=== PATIENT | female | born 1940 | race Two or more races ===

== ENCOUNTER 2018-10-08 17:43 | Observation (INO) | payer MEDICARE, MEDICAID ==
[2018-10-08 18:51] LABS: ALT 15 U/L (7-52); Albumin 4.1 g/dL (3.2-5.2); Albumin/Globulin Ratio 1.2 (1-3); Alkaline Phosphatase 73 U/L (34-104); BUN/Creatinine Ratio 21.9 (8-20); Blood Urea Nitrogen 30 mg/dL (6-24); CO2 Carbon Dioxide 28 mmol/L (22-32); Calcium 10.2 mg/dL (8.6-10.3); Chloride 105 mmol/L (101-111); EGFR Non-African American 37.1 (>60); Globulin 3.4 g/dL (2-4); Glucose 97 mg/dL (70-100); Magnesium 2.1 mg/dL (1.9-2.7); Sodium 139 mmol/L (135-145); Total Protein 7.5 g/dL (6.4-8.9)
--- NOTE | 2018-10-08 19:06 | ED ---
Dizziness - HPI Summary HPI Summary: An 78 y/o female presents to [facility] with a chief complaint of dizziness since the night of 10/07/18. Per son, she had trouble standing up. She feels cold even though room is warm. She c/o N/V. Her son gave the patient pepto bismol but she could not eat much. She vomited after eating half a banana. She was given chicken soup and pepto bismol again but she vomited again. She characterizes her dizziness as room-spinning. She denies ear ringing, headaches and chest pain. Her son thinks she has a flu since she did not get her flu shot. Hx of HTN, cardiac disease, kidney issues, HLD. 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 Hx of CVA once. She denies smoking. She rates her pain as a 0/10. Laying down alleviates her pain, sitting up and movement aggravates her pain. - History Of Current Complaint Chief Complaint: EDDizziness Stated Complaint: WEAKNESS, FALL Time Seen by Provider: 10/08/18 18:51 Hx Obtained From: Patient, Family/Director [employer] Onset/Duration: Suddenly Timing: Hours Severity Initially: Mild Severity Currently: Mild Character: Room Spinning Aggravating Factor(s): Other - Sitting up, movement Alleviating Factor(s): Lying Down Associated Signs And Symptoms: Positive: Nausea, Vomiting, Chills. Negative: Chest Pain, Fever - Allergies/Home Medications Allergies/Adverse Reactions: Allergies Allergy/AdvReac Type Severity Reaction Status Date / Time No Known Allergies Allergy Verified 10/08/18 17:52 Home Medications: Home Medications Albuterol Sulfate [Ventolin Hfa] 1 puff PO BID PRN 10/08/18 [History Confirmed 10/08/18] Bisoprolol Fumarate 1 tab PO DAILY 10/08/18 [History Confirmed 10/08/18] Clopidogrel TAB* [Plavix TAB*] 75 mg PO DAILY 10/08/18 [History Confirmed ] Fluticasone/Vilanterol MDI(NF) [Breo Ellipta MDI 200/25(NF)] 1 puff PO DAILY [History Confirmed 10/08/18] Torsemide 10 mg PO DAILY 10/08/18 [History Confirmed 10/08/18] amLODIPine TAB* [Norvasc 5 mg TAB*] 5 mg PO DAILY 10/08/18 [History Confirmed ] PMH/Surg Hx/FS Hx/Imm Hx Cardiovascular History: Reports: Hx Hypercholesterolemia, Hx Hypertension Respiratory History: Reports: Hx Asthma Musculoskeletal History: Denies: Hx Rheumatoid Arthritis, Hx Osteoporosis Infectious Disease History: No Infectious Disease History: Denies: Traveled Outside the [place] in Last 30 Days - Family History Known Family History: Positive: Cardiac Disease - father and mother Negative: Diabetes - Social History Alcohol Use: None Substance Use Type: Reports: None Smoking Status (MU): Never Smoked Tobacco Review of Systems Negative: Fever Negative: Ear Ache Negative: Chest Pain Positive: Vomiting, Nausea Neurological: Other - positive: dizziness-room spinning Negative: Headache All Other Systems Reviewed And Are Negative: Yes Physical Exam - Summary Physical Exam Summary: GENERAL: Patient is a well-developed and nourished F who is lying comfortable in the stretcher. Patient is not in any acute respiratory distress. HEAD AND FACE: Normocephalic EYES: PERRLA, EOMI x 2. EARS: Hearing grossly intact. MOUTH: Oropharynx within normal limits. NECK: Supple, trachea is midline, no adenopathy, no JVD, no carotid bruit. CHEST: Symmetric, no tenderness at palpation LUNGS: Clear to auscultation bilaterally. No wheezing or crackles. CVS: Regular rate and rhythm, S1 and S2 present, no murmurs or gallops appreciated. ABDOMEN: Soft, non-tender. Bowel sounds are normal. No abdominal abnormal pulsations. EXTREMITIES: Full ROM in all major joints, no edema, no cyanosis or clubbing. NEURO: Alert and oriented x 3. No acute neurological deficits. Speech is normal and follows commands. SKIN: Dry and warm Neuro exam extended: Cranial nerves II-XII grossly intact, no dysmetria finger to nose, nml heel to rajan GCS: 15 Triage Information Reviewed: Yes Vital Signs On Initial Exam: Initial Vitals Temp Pulse Resp BP Pulse Ox 98.8 F 78 20 148/66 98 10/08/18 17:47 10/08/18 17:47 10/08/18 17:47 10/08/18 17:47 10/08/18 17:47 Vital Signs Reviewed: Yes Diagnostics - Vital Signs Vital Signs Temp Pulse Resp BP Pulse Ox 10/08/18 17:47 98.8 F 78 20 148/66 98 - Laboratory Lab Results: Lab Results 10/08/18 10/08/18 Range/Units 18:22 18:24 Sodium 139 (135-145) mmol/L Potassium Pending Chloride 105 (101-111) mmol/L Carbon Dioxide 28 (22-32) mmol/L Anion Gap Pending BUN 30 H (6-24) mg/dL Creatinine 1.37 H (0.51-0.95) mg/dL Est GFR ( Amer) 44.9 (>60) Est GFR (Non-Af Amer) 37.1 (>60) BUN/Creatinine Ratio 21.9 H (8-20) Glucose 97 (70-100) mg/dL Lactic Acid 0.8 (0.5-2.0) mmol/L Calcium 10.2 (8.6-10.3) mg/dL Magnesium 2.1 (1.9-2.7) mg/dL Total Bilirubin 0.40 (0.2-1.0) mg/dL AST Pending ALT 15 (7-52) U/L Alkaline Phosphatase 73 (34-104) U/L Troponin I 0.02 (<0.04) ng/mL Total Protein 7.5 (6.4-8.9) g/dL Albumin 4.1 (3.2-5.2) g/dL Globulin 3.4 (2-4) g/dL Albumin/Globulin Ratio 1.2 (1-3) TSH Pending Result Diagrams: 10/08/18 19:19 10/08/18 18:22 Lab Statement: Any lab studies that have been ordered have been reviewed, and results considered in the medical decision making process. - Radiology CXR Radiology Interpretation Completed By: ED Physician Summary of Radiographic Findings: No evidence for PNA. Pending official radiology report. - CT Brain CT Interpretation Completed By: Radiologist Summary of CT Findings: 1. Left frontal white matter focal acute hemorrhage versus calcification. Correlation with prior imaging or followup brain MRI recommended. 2. Mild chronic small vessel ischemic disease and small chronic left inferior. cerebellar lobe infarct. ED provider has reviewed this imaging report. - EKG 18:16 Cardiac Rate: NL - 80 bpm EKG Rhythm: Sinus Rhythm Summary of EKG Findings: NSR at 80 bpm with LBBB and ST elevation and depression which does not meet Sgarbossa's criteria. Re-Evaluation - Re-Evaluation First Eval Re-Evaluation Time: 20:20 Change: Improved Comment: Patient reports that dizziness is resolved. Second Eval Re-Evaluation Time: 21:00 Change: Worse Comment: Patient reports dizziness and was leaning to the right when walking to the bathroom. Patient agrees to admission. Dizzy Course/Dx - Course Course Of Treatment: An 78 y/o female presents to [facility] with a chief complaint of dizziness since the night of 10/07/18. Per son, she had trouble standing up. She feels cold even though room is warm. She c/o N/V. Workup is remarkable. BUN/ Creatinine ratio high at 21.9. Troponin 0.02. Influenza A and Influenza B negative. Urinalysis WNL. EKG revealed NSR at 80 bpm with LBBB and ST elevation and depression which does not meet Sgarbossa's criteria. CXR showed no evidence for PNA. Brain CT impression: 1. Left frontal white matter focal acute hemorrhage versus calcification. Correlation with prior imaging or followup brain MRI recommended. 2. Mild chronic small vessel ischemic disease and small chronic left inferior. cerebellar lobe infarct. Dr. Lopez viewed the brain CT and stated that it looks like calcification. Dx: dizziness. Upon re-eval the patient reprorts no more dizziness. Upon a later re-eval, the patient reports dizziness and is off-balance leaning to the right when walking to the bathroom. She would not be a safe discharge. The patient will be admitted. Case discussed with hospitalist. I discussed results with patient. The patient agrees with this plan. - Diagnoses Provider Diagnoses: Dizziness - Provider Notifications Discussed Care Of Patient With: Riley Lopez Time Discussed With Above Provider: 20:15 Instructed by Provider To: Other - Looked at Brain CT and it looks like calcification to him Discharge - Sign-Out/Discharge Documenting (check all that apply): Patient Departure - admit - Discharge Plan Condition: Stable Disposition: ADMITTED TO [facility] Referrals: Joy Grewal MD [Primary Care Provider] - () - Billing Disposition and Condition Condition: STABLE Disposition: Admitted to [facility] - Attestation Statements Document Initiated by Scribe: Yes Documenting Scribe: Joe Borjas Provider For Whom Scribe is Documenting (Include Credential): Terence Mackenzie MD Scribe Attestation: I, Joe Borjas, scribed for Terence Mackenzie MD on 10/08/18 at 2129. Scribe Documentation Reviewed: Yes Provider Attestation: The documentation as recorded by the scribe, Joe Borjas accurately reflects the service I personally performed and the decisions made by me, Jeremiah Mackenzie MD Status of Scribe Document: Viewed Consult Consult: At 21:15 Dr Gross, Hospitalist, accepted the patient for admission.
[2018-10-08] MEDS ORDERED: Ondansetron INJ* 2 MG/ML VIAL IV ONE (19:10)
[2018-10-08] MEDS ORDERED: NS 0.9% 500 ML* 500 ML IV ONE (19:10)
[2018-10-08 19:29] LABS: ABS Basophils 0.1 10^3/ul (0-0.2); ABS Eosinophils 0.1 10^3/ul (0-0.6); ABS Monocytes 0.5 10^3/ul (0-0.8); ABS Neutrophils 6.2 10^3/ul (1.5-7.7); ABS Nucleated RBC 0 10^3/ul; Eosinophil % 1.6 %; Hematocrit 35 % (35-47); Hemoglobin 11.6 g/dl (12.0-16.0); Lymphocyte % 22.6 %; Mean Corpuscular HGB Conc 34 g/dl (31-36); Mean Corpuscular Hemoglobin 29 pg (27-31); Mean Corpuscular Volume 87 fL (80-97); Mean Platelet Volume 8.5 fL (7.4-10.4); Nucleated Red Blood Cells % 0; Platelet Count 319 10^3/ul (150-450); Red Blood Count 3.96 10^6/ul (4.00-5.40); Red Cell Distribution Width 14 % (10.5-15)
[2018-10-08 19:48] LABS: Anion Gap 6 mmol/L (2-11)
[2018-10-08 21:19] LABS: Urine Appearance Clear; Urine Bacteria Absent (Absent); Urine Bilirubin Negative (Negative); Urine Blood 1+ (Negative); Urine Color Yellow; Urine Glucose Negative (Negative); Urine Ketones Negative (Negative); Urine Nitrite Negative (Negative); Urine Protein Negative (Negative); Urine Red Blood Cell Trace(0-2/hpf) (Absent); Urine Specific Gravity 1.012 (1.010-1.030); Urine Urobilinogen Negative (Negative); Urine White Blood Cell Trace(0-5/hpf) (Absent)
[2018-10-08] MEDS ORDERED: Acetaminophen TAB* 325 MG PO PRN (22:16)
[2018-10-08] MEDS ORDERED: Aspirin TAB* 325 MG PO ONE (23:04)
--- NOTE | 2018-10-09 01:24 | HP ---
CC: Dr. Grewal* [facility] MEDICINE HISTORY AND PHYSICAL: DATE OF ADMISSION: 10/08/18 PRIMARY CARE PHYSICIAN: Dr. Grewal. ATTENDING PHYSICIAN: Dr. Nasrin Gross* (dictation provided by Belinda Myles NP) . CHIEF COMPLAINT: Lightheadedness, dizziness, gait instability. HISTORY OF PRESENT ILLNESS: Ms. Boone is an 78-year-old female with past medical history of hypertension, congestive heart failure with lower extremity edema, COPD, questionable history of coronary artery disease, and possible stroke, who presents today to the hospital with concern for what is described variably as lightheadedness, dizziness, and gait instability. Attempts were made to use the iuss acoustic analyst phone with Ms. Boone but we were unable to obtain an Urdu spanish interpreter. Therefore, a translation was obtained from her son who was at the bedside. The patient states that she does not feel that the room is spinning but that she feels unsteady on her feet and that her legs would not do what she wants them to do. For this reason, she came to the emergency room for evaluation. She stated these symptoms started yesterday and lasted through the morning. She thought initially that she was feeling better and was thinking of leaving today from the ED but then when she got up to go to the bathroom, she again felt quite unsteady. I walked with her again today and she is feeling better and only describes feeling "tiny bit of lightheadedness" when she gets back to sit on the bed. She denies any other complaint. She denies any chest pain, shortness of breath, nausea, vomiting, diarrhea, abdominal pain. She has not been noted to have any new focal neurological deficits. Ms. Boone's son is not incredibly familiar with her past medical history. Per his report, he thought that she had had a stroke in the past although the description as told to him per his mother, seems to perhaps describe more of a heart attack. Regardless, the patient does have a history of COPD. He describes a history of CHF with an ejection fraction of 30%. She does have lower extremity edema for which she takes a diuretic. In the emergency room, Ms. Boone had a CT scan of the brain which showed left frontal white matter focal acute hemorrhage versus calcification and mild chronic small vessel ischemic disease. Because of this question of hemorrhage, the scan was reviewed by Neurosurgery and it was indicated to the ED physician that there was no hemorrhage and that this was in fact calcification. The remainder of her labs are unremarkable. PAST MEDICAL HISTORY: 1. Hypertension. 2. Lower extremity edema. 3. Reported congestive heart failure with ejection fraction 30%. 4. COPD. 5. Coronary artery disease. 6. Hyperlipidemia. MEDICATIONS: 1. Torsemide 10 mg p.o. daily. 2. Bisoprolol 1 tab p.o. daily. 3. Amlodipine 5 mg p.o. daily. 4. Fluticasone/vilanterol 200/25 one puff p.o. daily. 5. Clopidogrel 75 mg p.o. daily. 6. Albuterol sulfate one puff p.o. b.i.d. p.r.n. RADIOLOGICAL STUDIES AND LABORATORY DATA: CT brain as described per above. Chest x-ray shows no acute intrathoracic process. No evidence of infiltrate or apparent edema. Official read is pending. ASSESSMENT AND PLAN: Ms. Boone is an 78-year-old female with a past medical history of hypertension, likely CHF, COPD, coronary artery disease and possible stroke/MO, who presents to the hospital today with concern for instability on her feet. Our plans are for observation in the hospital for the followin. Gait instability: The patient seems to have had as best I can determine, the patient denies dizziness, but she does report some sensation of lightheadedness, but primarily reports that she felt that her legs were unstable and she felt very unsteady on her feet. This came on suddenly yesterday and now seems to be improving. My worry is that perhaps she has had a TIA affecting her posterior lobe. Plan for MRI of brain tomorrow and she will have telemonitoring until then. She had a recent fasting lipid profile in December and I do not think one would be reasonable to repeat now. She will be given aspirin tonight. If the MRI is positive, we would continue workup with a transthoracic echocardiogram. 2. Hypertension. Plan to continue amlodipine and bisoprolol. 3. History of CHF. I do not have a prior echocardiogram available here for comparison but the patient's son believes she had an ejection fraction of 30%. Plan to continue home torsemide. No evidence of acute exacerbation. 4. History of coronary artery disease and possible stroke. Continue Plavix. 5. Code status is full code. 6. Disposition to telemetry floor. TIME SPENT: Approximately 60 minutes were spent on the admission of this patient, more than half the time spent with the patient at the bedside reviewing the events leading up to this hospitalization, performing the physical examination, and reviewing my plan of care. BELINDA MYLES NP [id number]/CPS #: [id number] JAYESH
[2018-10-09] MEDS ORDERED: Clopidogrel TAB* 75 MG PO SCH (09:00)
[2018-10-09] MEDS ORDERED: Torsemide TAB* 20 MG PO SCH (09:00)
[2018-10-09] MEDS ORDERED: amLODIPine TAB* 5 MG PO SCH (09:00)
[2018-10-09] MEDS ORDERED: Bisoprolol TAB* 5 MG PO SCH (09:00)
[2018-10-09 15:35] VITALS: BP 111/52
--- NOTE | 2018-10-10 15:13 | DS ---
CC: Dr. Grewal * DISCHARGE SUMMARY: DATE OF ADMISSION: 10/08/18 DATE OF DISCHARGE: 10/09/18 PRIMARY CARE PROVIDER: Dr. Grewal. PRIMARY DIAGNOSES: 1. Vertigo. 2. Identification of old stroke on MRI. SECONDARY DIAGNOSES: Include: 1. Hypertension. 2. Lower extremity edema. 3. Self-reported history of coronary artery disease with an ejection fraction of 30%. 4. Chronic obstructive pulmonary disease. 5. Hyperlipidemia. MEDICATIONS AT DISCHARGE: Unchanged from admission. 1. Torsemide 10 mg daily. 2. Bisoprolol 5 mg daily. 3. Amlodipine 5 mg daily. 4. Breo Ellipta. 5. Clopidogrel 75 mg daily. 6. Albuterol 2 puffs as needed. PERTINENT IMAGING PERFORMED DURING HOSPITAL STAY: MRI of the brain, old infarct in the left cerebellum with chronic ischemic white matter changes. No acute changes are noted. No evidence of hemorrhage. HISTORY OF PRESENT ILLNESS AND HOSPITAL COURSE: This is an 78-year-old female with past medical history as outlined in the history of present illness on the day of admission, who presented to the hospital with some lightheadedness, dizziness as well as gait instability that resolved overnight. She was monitored on telemetry without any arrhythmias identified. MRI identified an old stroke in cerebellar area as indicated above. Discussed results with this patient, indicated that she should stay on Plavix as well as continue adequate blood pressure control, which was excellent during the course of the hospital stay. Her presentation blood sugar was 97; therefore, her blood sugar is under control. Of note, lipids were not checked prior to discharge; however, she indicates that she was prescribed medicines for cholesterol, which she did not want to take because she was taking too many medications. An extensive conversation was held with the family and patient as well as used conversation through medical office technician. The patient would like to consider this medication further. In discussion with Dr. Grewal, at this point does not want to start an oral medication for suspected hyperlipidemia. On the day of discharge, the patient was completely resolved, had no symptoms, benign neuro exam. At followup, please; 1. Consider oral medication for hyperlipidemia if patient is not resistant. 2. Continue to manage blood pressure as I am sure you are. 3. No other specific labs or vitals that need followup. Reasons to return to the hospital including, but not limited to recurrent or worsening symptoms including light-headedness, chest pain, shortness of breath, nausea, vomiting, loss of consciousness or near loss of consciousness, unilateral paresthesias or weakness, facial drooping, slurred speech, confusion discussed with the patient and family at length. Encouraged them to present to the hospital expeditiously as treatment is given in less than 3 hours. They acknowledged understanding. TIME SPENT: Greater than 45 minutes was spent on the discharge of this patient , greater than half was spent [id number] with the patient and her family. [id number]/[facility] #: [id number] MTDD
== END 2018-10-09 20:07 | disposition home or self-care (01) ==
LOC: ED 17:43 → MEDTELE 22:08
PROVIDERS: ADMIT Internal Medicine; ATTEND Internal Medicine
DX: R42 Dizziness and giddiness (principal); R11.2 Nausea with vomiting, unspecified; R51 Headache
CPT/HCPCS: 36415; 70450; 70551; 71046; 80053; 81003; 81015; 83605; 83735; 84443; 84484; 85025; 87086; 93005; 96361; 96374; 99283; A9270-GY; G0378; J2405

== ENCOUNTER 2019-05-03 09:53 | Observation (INO) | payer MEDICARE, MEDICAID ==
[2019-05-03] MEDS ORDERED: Furosemide IV* 10 MG/ML VIAL (40 MG) IV SLOW PU ONE (10:42)
[2019-05-03 10:44] LABS: ALT 21 U/L (7-52); AST 25 U/L (13-39); Albumin 4.1 g/dL (3.2-5.2); Albumin/Globulin Ratio 1.1 (1-3); Alkaline Phosphatase 109 U/L (34-104); Anion Gap 9 mmol/L (2-11); BUN/Creatinine Ratio 18.9 (8-20); Blood Urea Nitrogen 25 mg/dL (6-24); CO2 Carbon Dioxide 26 mmol/L (22-32); Calcium 9.7 mg/dL (8.6-10.3); Chloride 104 mmol/L (101-111); EGFR African American 46.7 (>60); EGFR Non-African American 38.6 (>60); Globulin 3.7 g/dL (2-4); Glucose 133 mg/dL (70-100); Potassium 4.4 mmol/L (3.5-5.0); Sodium 139 mmol/L (135-145); Total Protein 7.8 g/dL (6.4-8.9)
[2019-05-03] MEDS ORDERED: Nitro 2% OINT* (Nitroglycerin) 1 INCH/PAK PAK TOPICAL ONE (10:46)
[2019-05-03] MEDS ORDERED: Nitroglycerin TAB 0.4 MG* 0.4 MG TAB SL ONE (10:46)
[2019-05-03 10:48] LABS: ABS Basophils 0.1 10^3/ul (0-0.2); ABS Eosinophils 0.4 10^3/ul (0-0.6); ABS Lymphocytes 2.4 10^3/ul (1.0-4.8); ABS Monocytes 0.7 10^3/ul (0-0.8); ABS Neutrophils 6.8 10^3/ul (1.5-7.7); Eosinophil % 3.6 %; Hematocrit 36 % (35-47); Hemoglobin 11.5 g/dL (12.0-16.0); Lymphocyte % 23.2 %; Mean Corpuscular HGB Conc 32 g/dL (31-36); Mean Corpuscular Hemoglobin 29 pg (27-31); Mean Corpuscular Volume 89 fL (80-97); Mean Platelet Volume 8.9 fL (7.4-10.4); Platelet Count 286 10^3/uL (150-450); Red Blood Count 4.05 10^6 /uL (3.70-4.87); Red Cell Distribution Width 14 % (10-15); White Blood Count 10.3 10^3/uL (3.5-10.8)
--- NOTE | 2019-05-03 10:48 | ED ---
Respiratory - HPI Summary HPI Summary: This patient is a 79 year old F presenting to [facility] accompanied by her son with a chief complaint of rapid breathing since 0200 this morning. Hx obtained by her son due to the pt not speaking Sammarinese. Pt states she "felt like she was running" while at rest. She could not sleep due to her rapid breathing and SOB. Pt sleeps with 1 pillow. She notes she had similar symptoms in the past and has used an inhaler for those symptoms, but current symptoms are more severe. She has no hx of blood clots in her legs or lungs or hx of pedal edema, but has hx of IL. Pt denies any cardiac stents or bypasses. Her last stress test was 4 months ago. Pt takes Ezetimabe, Amlodipine, Clopidogrel, Torsemide, and Tylenol , but did not take Torsimide yesterday or today due to it making her urinate more frequently. The patient rates the pain 0/10 in severity. Symptoms aggravated by exertion and laying down. Symptoms alleviated by rest. Pt denies any fever, diaphoresis, chills, erythema of eyes, sore throat, CP, cough, abdominal pain, N/V, dysuria, hematuria, myalgia, edema, rash, or dizziness. Pt came to [place] 2 weeks ago from [place] and states she is up to date with her vaccinations. - History of Current Complaint Chief Complaint: EDShortnessOfBreath Stated Complaint: SOB/CHEST TIGHTNESS PER PT Time Seen by Provider: 05/03/19 10:09 Hx Obtained From: Family/Kennel Attendant - son due to pt not speaking Sammarinese Onset/Duration: Sudden Onset, Lasting Hours - 8, Still Present Timing: Constant Initial Severity: Moderate Current Severity: Moderate Pain Intensity: 0 Character: Dyspnea at Rest Sputum Amount: None Aggravating Factor(s): Exertion, Other - laying down Alleviating Factor(s): Rest Associated Signs and Symptoms: SOB - Allergy/Home Medications Allergies/Adverse Reactions: Allergies Allergy/AdvReac Type Severity Reaction Status Date / Time No Known Allergies Allergy Verified 05/03/19 09:57 Home Medications: Home Medications Acetaminophen [Tylenol Extra Strength] 500 - 1,000 mg PO Q8HR PRN 05/03/19 [ History Confirmed 05/03/19] Ezetimibe/Simvastatin [Ezetimibe/Simvastatin 10-40 mg] 1 tab PO DAILY 05/03/19 [ History Confirmed 05/03/19] PMH/Surg Hx/FS Hx/Imm Hx Previously Healthy: No Endocrine/Hematology History: Reports: Hx Diabetes - patients son states It is under control, recently diagnosed. 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 CORNEAL TRANSPLANT; Infectious Disease History: No Infectious Disease History: Denies: Traveled Outside the [place] in Last 30 Days - Family History Known Family History: Positive: Cardiac Disease - father and mother Negative: Diabetes - Social History Alcohol Use: None Hx Substance Use: No Substance Use Type: Reports: None Hx Tobacco Use: No Smoking Status (MU): Never Smoked Tobacco Do You Chew or Dip Tobacco: No Have You Chewed or Dipped Tobacco in the LAST YEAR: No Have You Smoked in the Last Year: No Review of Systems Negative: Fever, Chills, Skin Diaphoresis Negative: Erythema Negative: Sore Throat Negative: Chest Pain Respiratory: Other - positive - rapid breathing Positive: Shortness Of Breath. Negative: Cough Negative: Abdominal Pain, Vomiting, Nausea Negative: dysuria, hematuria Negative: Myalgia, Edema Negative: Rash Neurological: Other - negative - dizziness All Other Systems Reviewed And Are Negative: Yes Physical Exam - Summary Physical Exam Summary: Constitutional: Well-developed, Well-nourished, Alert. (-) Distressed Skin: Warm, Dry HENT: Normocephalic; Atraumatic Eyes: Conjunctiva normal Neck: Musculoskeletal ROM normal neck. (-) JVD, (-) Stridor, (-) Tracheal deviation Cardio: Rhythm regular, rate normal, Heart sounds normal; Intact distal pulses; The pedal pulses are 2+ and symmetric. Radial pulses are 2+ and symmetric. (-) Murmur Pulmonary/Chest wall: Effort normal. (-) Respiratory distress, (-) Wheezes, bibasilar rales, tachypnic Abd: Soft, (-) tenderness, (-) Distension, (-) Guarding, (-) Rebound Musculoskeletal:Trace pedal edema Lymph: (-) Cervical adenopathy Neuro: Alert, Oriented x3 Psych: Mood and affect Normal Triage Information Reviewed: Yes Vital Signs On Initial Exam: Initial Vitals Temp Pulse Resp BP Pulse Ox 97.8 F 95 18 135/68 97 05/03/19 09:54 05/03/19 09:54 05/03/19 09:54 05/03/19 09:54 05/03/19 09:54 Vital Signs Reviewed: Yes Diagnostics - Vital Signs Vital Signs Temp Pulse Resp BP Pulse Ox 05/03/19 09:54 97.8 F 95 18 135/68 97 - Laboratory Result Diagrams: 05/03/19 10:16 05/03/19 10:16 Lab Statement: Any lab studies that have been ordered have been reviewed, and results considered in the medical decision making process. - Radiology CXR Radiology Interpretation Completed By: Radiologist Summary of Radiographic Findings: IMPRESSION: FINDINGS SUGGESTIVE OF CONGESTIVE HEART FAILURE. These findings were reviewed by Dr. Anderson. - EKG 1004 Cardiac Rate: NL - 95 BPM EKG Rhythm: Sinus Rhythm Summary of EKG Findings: 95 BPM, sinus rhythm, LBBB Disposition - Course Course Of Treatment: This patient is a 79 year old F presenting to [facility] accompanied by her son with a chief complaint of rapid breathing since 0200 this morning. Hx obtained by her son due to the pt not speaking Sammarinese. Pt states she "felt like she was running" while at rest. She could not sleep due to her rapid breathing and SOB. Pt sleeps with 1 pillow. She notes she had similar symptoms in the past and has used an inhaler for those symptoms, but current symptoms are more severe. She has no hx of blood clots in her legs or lungs or hx of pedal edema, but has hx of IL. Pt denies any cardiac stents or bypasses. Her last stress test was 4 months ago. Pt takes Ezetimabe, Amlodipine , Clopidogrel, Torsemide, and Tylenol, but did not take Torsimide yesterday or today due to it making her urinate more frequently. The patient rates the pain 0 /10 in severity. Symptoms aggravated by exertion and laying down. Symptoms alleviated by rest. Pt denies any fever, diaphoresis, chills, erythema of eyes, sore throat, CP, cough, abdominal pain, N/V, dysuria, hematuria, myalgia, edema , rash, or dizziness. Pt came to [place] 2 weeks ago from [place] and states she is up to date with her vaccinations. Physical exam shows bibasilar rales, tachypnic, and trace pedal edema. Pt has orthopnea coupled with uncompliant medication use as well as signs of fluid overload. Lab results show Hgb 11.5, D -dimer 439, BUN 25, creatinine 1.32, glucose 133, alkaline phosphatase 109, trop I 0.14. EKG at 1004 shows 95 BPM, sinus rhythm, LBBB. CXR IMPRESSION: FINDINGS SUGGESTIVE OF CONGESTIVE HEART FAILURE. During ED course, pt was given Lasix and NTG. At 1125, Dr. Anderson discusses pt's case with Dr. Antunez, hospitalist, who agrees to admit pt. Pt is agreeable. Dx is CHF exacerbation. - Diagnoses Provider Diagnoses: CHF exacerbation - Physician Notifications Discussed Care Of Patient With: Rose Antunez Time Discussed With Above Provider: 11:25 Instructed by Provider To: Other - Dr. Anderson discusses pt's case with Dr. Antunez, hospitalist, who agrees to admit pt. Discharge - Sign-Out/Discharge Documenting (check all that apply): Patient Departure - admit Patient Received Moderate/Deep Sedation with Procedure: No - Discharge Plan Condition: Stable Disposition: ADMITTED TO [facility] Referrals: Joy Grewal MD [Primary Care Provider] - - Attestation Statements Document Initiated by Scribe: Yes Documenting Scribe: Salinas Zaragoza Provider For Whom Scribe is Documenting (Include Credential): Dr. Gabriel Anderson MD Scribe Attestation: Salinas Mcmillan, scribed for Dr. Gabriel Anderson MD on 05/03/19 at 1159. Status of Scribe Document: Ready
[2019-05-03 10:49] LABS: Troponin I 0.14 ng/mL (<0.04)
[2019-05-03 10:53] LABS: INR 0.85 (0.82-1.09)
--- OUTSIDE RECORDS SUMMARY | 2019-05-03 11:01 | XMS REPORT | Continuity of Care Document ---
:1940 External Reference #:[id number] Author Name Joy Grewal M.D. Address [address] [facility] [address] [place] [address] Care Team Providers Name Role Phone Joy Grewal M.D. Care Team Information Furniture Refinisher Unavailable Payers Date Identification Numbers Payment Provider Subscriber Policy Number: [id number] Medicare Kaia Fish PayID: [id number] [address] [place] [address] Policy Number: [id number] Medicaid/[employer] Kaia Fish PayID: [id number] [address] [place] [address] Family History Date Family Member(s) Observation Comments Father due to at age 60 () Father due to Heart Attack () Mother due to at age 61 () Mother due to Heart Attack () First Son 49 First Son No Current Problems Second Son 48 Second Son No Current Problems Third Son 41 Third Son No Current Problems Fourth Son 38 Fourth Son No Current Problems Fifth Son 30 Fifth Son No Current Problems Sixth Son due to at age 3 () Sixth Son due to undeveloped brain () First Brother heart issues First Brother 63 First Sister 70 First Sister Hypertension Second Sister 60 Second Sister No Current Problems Social History Type Date Description Comments Sex Unknown Marital Status Legal Status: ETOH Use Never used alcohol Tobacco Use Start: Unknown Patient has never smoked Allergies, Adverse Reactions, Alerts Description No Known Drug Allergies Medications Active Medications SIG Qnty Indications Ordering Provider Date Vytorin 1 tab by mouth at 90tabs I25.10 Joy Grewal, 04/24/2019 10-40mg Tablets bedtime M.D. I25.5 I25.10 Advair Diskus inhale one puff 60units I25.10 Joy Grewal, 04/24/2019 250-50mcg/Dose by mouth twice a M.D. Aerosol day I25.5 Polyethylene Glycol 3350 by mouth every 1020gm K59.00 Joy Grewal, 3350NF day M.D. Powder Hydrocortisone Acetate [address] of 60units K64.9 Joy Grewal, 2018 30mg rectum twice a M.D. Suppository day as needed Clopidogrel Bisulfate Take 1 Tablet By 90tabs Joy Grewal, 07/24/2018 75mg Mouth Every Day M.D. Tablets Acetaminophen 1-2 tab by mouth 180tabs M15.9 Joy Grewal, 07/20/2018 500mg Tablets three times a day M.D. as needed Womens Daily 1 by mouth every 90tabs E55.9 Joy Grewal, 12/20/2017 Formula/Folic day M.D. Acid/Calcium/Iron Tablets Torsemide Take 1 Tablet By 90tabs I10 Joy Grewal, 11/18/2017 10mg Tablets Mouth Every Day M.D. I25.5 I25.10 Amlodipine Besylate Take 1 Tablet By 90tabs I10 Joy Grewal, 2017 5mg Mouth Every Day M.D. Tablets R06.02 I25.5 Elastic Stocking Large use as directed 2Pair R60.0 Joy Grewal M.D. 11/18/2017 Or Extra Large I25.10 Aspirin 1 by mouth every day I25.5 Joy Grewal M.D. 09/02/[address] [place] I10 Proair HFA 2 puffs every 4 2Mdi Joy Grewal, 07/17/2014 108(90Base) hours as needed M.D. mcg/Act Aerosol Glucosamine Chondroitin 1 cap by mouth M25.569 Joy Grewal, 2013 500 Complex twice a day M.D. 500Comp Capsules Mobic 1 by mouth every 90tabs M25.569 [facility] M., 04/25/2014 15mg Tablets day M.D. History Medications Trelegy Ellipta 1 by mouth 90units I25.10 [facility] 11/02/2018 - every day M., M.D. 04/24/2019 100-62.5-25mcg/Inh Aerosol I25.5 Advair Diskus inhale one 60units I25.10 [facility] 10/31/2018 - puff by mouth M., M.D. 11/02/2018 250-50mcg/Dose Aerosol twice a day Advair Diskus inhale one 180units I25.10 [facility] 10/31/2018 - puff by mouth M. M.D. 11/02/2018 250-50mcg/Dose Aerosol twice a day Metoprolol Succinate ER 1 by mouth 30tabs I10 [facility] 10/17/2018 - every day M., M.D. 10/29/2018 25mg Tablets ER 24HR I25.10 I25.5 Breo Ellipta puff one by 180units M25.569 [facility] 06/20/2018 - mouth every in M., M.D. 10/31/2018 200-25mcg/Inh Aerosol the morning Plavix 1 by mouth 90tabs [facility] 12/17/2017 - 75mg Tablets every day M., M.D. 07/24/2018 Bisoprolol Fumarate 1 tab by mouth 90tabs I10 [facility] 11/18/2017 - 5mg every day M., M.D. 10/17/2018 Tablets I25.10 I25.5 Vytorin 1 tab [facility]tabs [facility]2017 - 10-40mg bedtime M.D. 07/20/2018 Tablets I25.5 I25.10 Carvedilol take one tablet 180tabs I10 [facility], 09/16/2015 - 12.5mg by mouth twice a M.D. 11/18/2017 Tablets day I25.10 I25.5 Carvedilol 1 tab by mouth 180tabs I10 [facility] 09/02/2015 - 6.25mg twice a day M.D. 09/16/2015 Tablets I25.10 I25.5 Imdur 1 tab by mouth 90tabs I25.5 [facility]., 09/02/2015 - 60mg every day M.D. 11/10/2017 Tablets ER 24HR I25.10 I10 Omeprazole Take One Capsule 90caps K21.0 [facility] 09/03/2014 - 20mg By Mouth Every M., M.D. 11/10/[address] Day Carvedilol Take 1 Tablet By 180tabs I10 [facility] 07/17/2014 - 3.125mg Mouth Twice A Day M., M.D. 09/02/2015 Tablets I25.10 I25.5 Hydrochlorothiazide take one 90tabs I10 [facility] 07/17/2014 - 25mg Tablets tablet by M. M.D. 11/18/2017 mouth one time daily R06.02 I25.5 Advair Diskus inhale one 60units M25.569 [facility] 07/17/2014 - puff by mouth M. M.D. 06/20/2018 250-50mcg/Dose Aerosol twice a day Lisinopril 1 by mouth 90tabs I25.5 [facility] 06/04/2014 - 40mg Tablets every day M., M.D. 11/10/2017 Lipitor take 1 tablet 90tabs I10 [facility] 06/04/2014 - 40mg Tablets by mouth every M., M.D. 11/18/2017 day I25.5 Foradil Aerolizer 1 cap Inhaled [facility] 04/25/2014 - 12mcg twice a day M., M.D. 07/17/2014 Capsules Budesonide 1 cap Inhaled [facility] 04/25/2014 - Powder twice a day M., M.D. 07/17/2014 Nitroglycerin ER 1 cap by mouth [facility], [facility] 04/25/2014 - 2.5mg every day M., M.D. 09/02/2015 Capsules ER Fosinopril Sodium 1 tab by mouth 425.9 [facility], [facility] 04/25/2014 - 20mg every day M., M.D. 06/04/2014 Tablets Aspirin 1 by mouth every 90tabs 426.50 [facility] 04/25/2014 - 325mg Tablets day M., M.D. 09/02/2015 Vital Signs Date Vital Result Comment 04/24/2019 12:52pm BP Systolic 118 mmHg BP Diastolic 62 mmHg Height 62 inches 5'2" Weight 163.00 lb BMI (Body Mass Index) 29.8 kg/m2 Heart Rate 102 /min Respiratory Rate 16 /min 10/31/2018 11:21am BP Systolic 126 mmHg BP Diastolic 70 mmHg Height 62 inches 5'2" Weight 167.00 lb BMI (Body Mass Index) 30.5 kg/m2 Heart Rate 70 /min Respiratory Rate 16 /min 08/03/2018 12:54pm BP Systolic 110 mmHg BP Diastolic 70 mmHg Height 62 inches 5'2" Weight 164.00 lb BMI (Body Mass Index) 30.0 kg/m2 Heart Rate 87 /min Respiratory Rate 16 /min 07/20/2018 1:11pm BP Systolic 110 mmHg BP Diastolic 62 mmHg Height 62 inches 5'2" Weight 163.00 lb BMI (Body Mass Index) 29.8 kg/m2 Heart Rate 81 /min Respiratory Rate 16 /min 06/20/2018 10:57am BP Systolic 124 mmHg BP Diastolic 60 mmHg Height 62 inches 5'2" Weight 164.00 lb BMI (Body Mass Index) 30.0 kg/m2 Heart Rate 88 /min Respiratory Rate 16 /min 12/20/2017 1:14pm BP Systolic 118 mmHg BP Diastolic 60 mmHg Height 62 inches 5'2" Weight 180.00 lb BMI (Body Mass Index) 32.9 kg/m2 Heart Rate 98 /min Respiratory Rate 18 /min 12/13/2017 1:13pm BP Systolic 118 mmHg BP Diastolic 64 mmHg Height 62 inches 5'2" Weight 170.00 lb BMI (Body Mass Index) 31.1 kg/m2 Heart Rate 64 /min Respiratory Rate 16 /min 11/18/2017 11:05am BP Systolic 118 mmHg BP Diastolic 70 mmHg Height 62 inches 5'2" Weight 170.00 lb BMI (Body Mass Index) 31.1 kg/m2 Heart Rate 73 /min Respiratory Rate 18 /min 09/16/2015 11:46am BP Systolic 159 mmHg BP Diastolic 85 mmHg Height 62 inches 5'2" Weight 178.00 lb BMI (Body Mass Index) 32.6 kg/m2 Heart Rate 78 /min Respiratory Rate 18 /min 09/02/2015 9:25am BP Systolic 159 mmHg BP Diastolic 75 mmHg Height 62 inches 5'2" Weight 178.00 lb BMI (Body Mass Index) 32.6 kg/m2 Heart Rate 70 /min Respiratory Rate 18 /min 09/03/2014 11:31am BP Systolic 168 mmHg BP Diastolic 90 mmHg Height 62 inches 5'2" Weight 177.00 lb BMI (Body Mass Index) 32.4 kg/m2 Heart Rate 73 /min Respiratory Rate 14 /min 07/17/2014 2:52pm BP Systolic 157 mmHg BP Diastolic 84 mmHg Height 62 inches 5'2" Weight 179.00 lb BMI (Body Mass Index) 32.7 kg/m2 Heart Rate 75 /min Respiratory Rate 16 /min 06/04/2014 4:40pm BP Systolic 176 mmHg manual BP Diastolic 94 mmHg manual BP Systolic Recheck 183 mmHg machine BP Diastolic Recheck 103 mmHg machine Height 62 inches 5'2" Weight 178.00 lb BMI (Body Mass Index) 32.6 kg/m2 Heart Rate 73 /min Body Temperature 96.5 F Respiratory Rate 18 /min 04/25/2014 3:25pm BP Systolic 153 mmHg BP Diastolic 97 mmHg Height 62 inches Weight 176.00 lb BMI (Body Mass Index) 32.2 kg/m2 Heart Rate 88 /min Body Temperature 97.0 F Respiratory Rate 18 /min Results Test Date Facility Test Result H/L Range Note Laboratory test 04/24/2019 [facility] TSH, Ultrasenstive <pending> finding [facility] (797)- - Hemoglobin A1c <pending> C React Prot, Highly Sensitive <pending> Vitamin D 25 Hydroxy <pending> Rapid Influenza A 10/08/2018 [facility] Influenza A NEGATIVE Negative 1 & B Molecular Molecular Influenza B Molecular NEGATIVE Negative Laboratory test 10/08/2018 [facility] Rapid Influenza A SEE RESULT 2 finding & B Antigen BELOW CBC Auto Diff 10/08/2018 [facility] White Blood Count 9.0 10^3/uL N 3.5-10. 8 Red Blood Count 3.96 10^6/uL Low 4.00-5.40 Hemoglobin 11.6 g/dL Low 12.0-16.0 Hematocrit 35 % N 35-47 Mean Corpuscular Volume 87 fL N 80-97 Mean Corpuscular Hemoglobin 29 pg N 27-31 Mean Corpuscular HGB Conc 34 g/dL N 31-36 Red Cell Distribution Width 14 % N 10.5-15 Platelet Count 319 10^3/uL N 150-450 Mean Platelet Volume 8.5 fL N 7.4-10.4 Abs Neutrophils 6.2 10^3/uL N 1.5-7.7 Abs Lymphocytes 2.0 10^3/uL N 1.0-4.8 Abs Monocytes 0.5 10^3/uL N 0-0.8 Abs Eosinophils 0.1 10^3/uL N 0-0.6 Abs Basophils 0.1 10^3/uL N 0-0.2 Abs Nucleated RBC 0 10^3/uL Granulocyte % 69.1 % Lymphocyte % 22.6 % Monocyte % 5.8 % Eosinophil % 1.6 % Basophil % 0.9 % Nucleated Red Blood Cells % 0 Laboratory test finding 10/08/2018 [facility] Lactic Acid 0.8 mmol/L N 0.5-2.0 3 Comp Metabolic Panel 10/08/2018 [facility] Sodium 139 mmol/L N 135- 145 Chloride 105 mmol/L N 101-111 Co2 Carbon Dioxide 28 mmol/L N 22-32 Glucose 97 mg/dL N 70-100 Blood Urea Nitrogen 30 mg/dL High 6-24 Creatinine 1.37 mg/dL High 0.51-0.95 BUN/Creatinine Ratio 21.9 High 8-20 Calcium 10.2 mg/dL N 8.6-10.3 Total Protein 7.5 g/dL N 6.4-8.9 Albumin 4.1 g/dL N 3.2-5.2 Globulin 3.4 g/dL N 2-4 Albumin/Globulin Ratio 1.2 N 1-3 Total Bilirubin 0.40 mg/dL N 0.2-1.0 Alkaline Phosphatase 73 U/L N 34-104 Alt 15 U/L N 7-52 Egfr Non- 37.1 >60 Egfr 44.9 >60 4 Potassium TNP mmol/L 3.5-5.0 5 Anion Gap 6 mmol/L N 2-11 Ast TNP U/L 13-39 6 Laboratory test finding 10/08/2018 [facility] Magnesium 2.1 mg/dL N 1.9-2.7 Troponin-I (TnI) 0.02 ng/mL <0.04 7 TSH (Thyroid Stim Horm) 1.20 mcIU/mL N 0.34-5.60 Urinalysis Profile 10/08/2018 [facility] Urine Color Yellow Urine Appearance Clear Urine Specific [place] 1.012 N 1.010-1.030 Urine pH 5.0 N 5-9 Urine Urobilinogen Negative Negative Urine Ketones Negative Negative Urine Protein Negative Negative Urine Leukocytes Negative Negative Urine Blood 1+ Abnormal Negative Urine Nitrite Negative Negative Urine Bilirubin Negative Negative Urine Glucose Negative Negative Urine White Blood Cell Trace(0-5/hpf) Absent Urine Red Blood Cell Trace(0-2/hpf) Absent Urine Bacteria Absent Absent Urine Culture And 10/08/2018 [facility] Urine Culture SEE RESULT 8 Sensitivities BELOW Laboratory test 07/20/2018 [facility] CRP, Sensitive @ 3.1 mg/L 9 finding [facility] (785)- - TSH,Ultrasensitive @ 1.300 mIU/L (0.360-4.170) 25 Hydroxy Vit D @ 11 ng/mL Low (31-100) 10 Hemoglobin A1c 07/20/2018 [facility] Hemoglobin A1c @ 6.0 % (4.0-6.0) 11 [facility] (607)- - Est Average Glucose 126 mg/dL Lipid 07/20/2018 [facility] Cholesterol @ 223 mg/dL High (0-200) [facility] (604)- - Triglyceride @ 185 mg/dL (30-200) HDL Cholesterol @ 51 mg/dL (>40) 12 Chol/HDL Ratio 4.4 RATIO 13 LDL Chol (Calc) 135 mg/dL High (<130) 14 CMP 07/20/2018 [facility] Sodium 143 mmol/L (136-145) [facility] (066)- - Potassium 4.9 mmol/L (3.6-5.2) Chloride 108 mmol/L (100-108) Co2 25 mmol/L (22-31) Anion Gap 10 mmol/L (7-16) Urea Nitrogen 38 mg/dL High (7-24) Creatinine 1.67 mg/dL High (0.60-1.00) BUN/Creat Ratio 22.8 RATIO High (10.0-20.0) Glucose 78 mg/dL (70-99) Calcium 8.3 mg/dL Low (8.4-10.2) Total Protein 7.1 g/dL (6.4-8.2) Albumin 3.2 g/dL (3.2-4.5) Globulin 3.9 g/dL (2.7-4.3) Alb/Glob Ratio 0.8 RATIO Alkaline Phosphatase 88 U/L (45-117) Bilirubin,Total 0.2 mg/dL (0.0-1.0) Ast (Sgot) 19 U/L (11-39) Alt (SGPT) 27 U/L (12-78) GFR 30 ml/min/1.73m2 Low (>59) GFR ( Amer) 36 ml/min/1.73m2 Low (>59) GFR Interpretation <SEE NOTE> 15 CBC With Diff 07/20/2018 [facility] WBC 10.3 10*3/uL (4.1-11.0) [facility] (607)- - RBC 4.07 10*6/uL (4.00-5.40) HGB 11.5 g/dL Low (12.0-16.0) HCT 35.7 % Low (36.0-47.0) MCV 87.9 fL (80.0-95.0) MCH 28.2 pg (27.0-32.0) MCHC 32.0 g/dL (32.0-36.0) RDW 15.1 % High (10.5-14.5) PLT 361 10*3/uL (150-450) MPV 9.5 fL (7.1-10.7) Neut % 56.6 % (35.0-75.0) Lymph % 31.5 % (16.0-52.0) [place] % 8.2 % High (0.0-8.0) Eos % 3.0 % (0.0-5.0) Baso % 0.7 % (0.0-4.0) Neut # 5.8 10*3/uL (1.8-7.7) Lymph # 3.2 10*3/uL (1.2-4.8) [place] # 0.8 10*3/uL (0.0-0.8) Eos # 0.3 10*3/uL (0.0-0.5) Baso # 0.1 10*3/uL (0.0-0.2) CBC Auto Diff 12/13/2017 [facility] White Blood Count 10.4 10^3/uL N 3.5-10.8 Red Blood Count 4.10 10^6/uL N 4.0-5.4 Hemoglobin 11.5 g/dL Low 12.0-16.0 Hematocrit 36 % N 35-47 Mean Corpuscular Volume 87 fL N 80-97 Mean Corpuscular Hemoglobin 28 pg N 27-31 Mean Corpuscular HGB Conc 33 g/dL N 31-36 Red Cell Distribution Width 14 % N 10.5-15 Platelet Count 342 10^3/uL N 150-450 Mean Platelet Volume 11 um3 High 7.4-10.4 Abs Neutrophils 7.1 10^3/uL N 1.5-7.7 Abs Lymphocytes 2.0 10^3/uL N 1.0-4.8 Abs Monocytes 0.7 10^3/uL N 0-0.8 Abs Eosinophils 0.5 10^3/uL N 0-0.6 Abs Basophils 0.1 10^3/uL N 0-0.2 Abs Nucleated RBC 0 10^3/uL Granulocyte % 68.0 % N 38-83 Lymphocyte % 19.0 % Low 25-47 Monocyte % 7.2 % High 0-7 Eosinophil % 4.8 % N 0-6 Basophil % 1.0 % N 0-2 Nucleated Red Blood Cells % 0.1 Comp Metabolic Panel 12/13/2017 [facility] Sodium 138 mmol/L N 133- 145 Potassium 4.3 mmol/L N 3.5-5.0 Chloride 101 mmol/L N 101-111 Co2 Carbon Dioxide 24 mmol/L N 22-32 Anion Gap 13 mmol/L High 2-11 Glucose 158 mg/dL High 70-100 Blood Urea Nitrogen 82 mg/dL High 6-24 Creatinine 3.21 mg/dL High 0.51-0.95 BUN/Creatinine Ratio 25.5 High 8-20 Calcium 9.2 mg/dL N 8.6-10.3 Total Protein 7.1 g/dL N 6.4-8.9 Albumin 4.0 g/dL N 3.2-5.2 Globulin 3.1 g/dL N 2-4 Albumin/Globulin Ratio 1.3 N 1-3 Total Bilirubin 0.30 mg/dL N 0.2-1.0 Alkaline Phosphatase 107 U/L High 34-104 Alt 7 U/L N 7-52 Ast 12 U/L Low 13-39 Egfr Non- 13.9 >60 Egfr 17.9 >60 16 Laboratory test 12/13/2017 [facility] TSH (Thyroid Stim 1.27 mcIU/mL N 0.34-5.60 17 finding Horm) Lipid Profile 12/13/2017 [facility] Triglycerides 162 mg/dL 18 (Trig/Chol/HDL) Cholesterol 220 mg/dL 19 HDL Cholesterol 41.4 mg/dL 20 LDL Cholesterol 146 mg/dL 21 Laboratory test 12/13/2017 [facility] Hemoglobin A1c 6.2 % High 4.0- 5.6 22 finding (Glyco HGB) Vitamin D Total 25(Oh) 12.6 ng/mL Low 20-50 23 Laboratory test finding 09/02/2015 [facility] Magnesium 2.2 mg/dL 1.8-2.4 CBC W/Automated Diff 09/02/2015 [facility] White Blood Count 8.8 K/uL 3.4- 10.5 Red Blood Count 3.79 M/uL Low 4.20-5.80 Hemoglobin 10.9 gm/dL Low 12.8-17.0 Hematocrit 35.8 % Low 38.0-48.0 Mean Cell Volume 94.5 fl 80.0-96.0 Mean Corpuscular HGB 28.8 pg 27.0-33.0 Mean Corpuscular HGB Conc 30.4 g/dL Low 31.7-36.0 Platelet Count 307 K/uL 150-400 Red Cell Distri Width SD 46.1 fl 36-51 Red Cell Distri Width %CV 14.0 % 11.6-15.8 Mean Platelet Volume 12.1 fL High 6.6-10.6 Neut% 58.4 % 33.0-73.0 Lymph % 27.7 % 17.0-56.0 [place] % 7.9 % 0.0-10.0 Eo% 5.0 % 0.0-5.0 Bas% 1.0 % 0.1-1.0 Neut# 5.16 K/uL 1.8-7.0 Lymph # 2.45 K/uL 1.8-7.0 [place] # 0.70 K/uL 0.0-0.8 Eos # 0.44 K/uL 0.0-0.5 Baso # 0.09 K/uL Low 0.1-0.2 Comprehensive Metabolic Panel 09/02/2015 [facility] Glucose 92 mg/dL 74- 106 BUN 33 mg/dL High 7-18 Creatinine 1.6 mg/dL High 0.6-1.3 Glom Filtration Rate, Estimate 45 mL/min >60 If 54 mL/min >60 24 BUN/Creat 20.6 ratio Sodium 142 mmol/L 136-145 Potassium 4.5 mmol/L 3.5-5.1 Chloride 109 mmol/L High 98-107 Carbon Dioxide 27 mmol/L 21-32 Anion Gap 6 mEq/L Low 8-16 Calcium 9.1 mg/dL 8.5-10.1 Total Protein 7.0 g/dL 6.4-8.2 Albumin 3.4 g/dL 3.4-5.0 Globulin 3.6 g/dL 1.9-4.3 Alb/Glob 0.9 ratio Bilirubin,Total 0.2 mg/dL 0.2-1.0 Sgot/Ast 12 U/L Low 15-37 25 SGPT/Alt 17 U/L 12-78 Alkaline Phosphatase 107 U/L 45-117 LDL Cholesterol Profile 09/02/2015 [facility] Cholesterol 261 mg/dL High < 200 26 Triglycerides 177 mg/dL High <150 27 HDL Cholesterol 41 mg/dL >40 28 LDL-Cholesterol 185 mg/dL < 100 29 Laboratory test 09/02/2015 [facility] Thyroid Stim 1.64 uIU/mL 0.36-3.74 finding Hormone Free T4 1.03 ng/dL 0.76-1.46 NT-proBNP 454.0 pg/mL High <450 C-Reactive Protein,Cardiac 7.09 mg/L <3.0 Glycohemoglobin A1c 09/02/2015 [facility] Glycohemoglobin (A1c) 6.1 % 4.2- 6.3 30 eAG 128 mg/dL CBC Auto Diff 09/03/2014 [facility] White Blood Count 8.9 10^3/uL N 4.8-10.8 Red Blood Count 4.00 10^6/uL N 4.0-5.4 Hemoglobin 11.5 g/dL Low 12.0-16.0 Hematocrit 35 % N 35-47 Mean Corpuscular Volume 86 fL N 80-97 Mean Corpuscular Hemoglobin 29 pg N 27-31 Mean Corpuscular HGB Conc 33 g/dL N 31-36 Red Cell Distribution Width 14 % N 10.5-15 Platelet Count 254 10^3/uL N 150-450 Mean Platelet Volume 10 um3 N 7.4-10.4 Abs Neutrophils 5.0 10^3/uL N 1.5-7.7 Abs Lymphocytes 2.6 10^3/uL N 1.0-4.8 Abs Monocytes 0.7 10^3/uL N 0-0.8 Abs Eosinophils 0.4 10^3/uL N 0-0.6 Abs Basophils 0.1 10^3/uL N 0-0.2 Abs Nucleated RBC 0.01 10^3/uL N Granulocyte % 56.3 % N 38-83 Lymphocyte % 29.4 % N 25-47 Monocyte % 8.2 % N 1-9 Eosinophil % 4.8 % N 0-6 Basophil % 1.3 % N 0-2 Nucleated Red Blood Cells % 0.1 N Comp Metabolic Panel 09/03/2014 [facility] Sodium 141 mmol/L N 133- 145 Potassium 4.6 mmol/L N 3.5-5.0 31 Chloride 108 mmol/L N 101-111 Co2 Carbon Dioxide 24 mmol/L N 22-32 Anion Gap 9 mmol/L N 2-11 Glucose 101 mg/dL High 70-100 Blood Urea Nitrogen 56 mg/dL High 6-24 Creatinine 2.36 mg/dL High 0.51-0.95 BUN/Creatinine Ratio 23.7 High 8-20 Calcium 9.7 mg/dL N 8.6-10.3 Total Protein 6.9 g/dL N 6.4-8.9 Albumin 4.0 g/dL N 3.2-5.2 Globulin 2.9 g/dL N 2-4 Albumin/Globulin Ratio 1.4 N 1-3 Total Bilirubin 0.40 mg/dL N 0.2-1.0 Alkaline Phosphatase 78 U/L N 34-104 Alt 10 U/L N 7-52 Ast 15 U/L N 13-39 Egfr Non- 20.0 N >60 Egfr 25.7 N >60 32 Lipid Profile 09/03/2014 [facility] Triglycerides 153 mg/dL N 33 (Trig/Chol/HDL) Cholesterol 145 mg/dL N 34 HDL Cholesterol 36.5 mg/dL N 35 LDL Cholesterol 78 mg/dL N 36 Laboratory test 09/03/2014 [facility] Hemoglobin A1c 6.7 % High Less than 37 finding 6.0 Erythrocyte Sed Rate 52 mm/Hr High 0-40 CRP High Sensitivity 3.41 mg/L N 38 TSH (Thyroid Stimulating Horm) 1.83 IU/mL N 0.34-5.60 Free T4 0.79 ng/mL N 0.61-1.12 Laboratory test finding 04/25/2014 [facility] Sedimentation Rate 42 mm/hr High 0-20 C-Reactive Protein,Cardiac 6.79 mg/L High 0.00-3.00 39 Free T4 1.02 ng/dL 0.71-1.85 Glycohemoglobin A1c 04/25/2014 [facility] Glycohemoglobin (A1c) 6.6 % High 4.8-6.0 40 eAG 143 mg/dL LDL Cholesterol Profile 04/25/2014 [facility] Cholesterol 268 mg/dL High 120-200 Triglycerides 193 mg/dL 16-231 HDL Cholesterol 54 mg/dL 29-83 LDL-Cholesterol 175 mg/dL 62-185 Laboratory test finding 04/25/2014 [facility] Thyroid Stim 1.01 uIU/mL 0.49-4.67 Hormone Comprehensive Metabolic 04/25/2014 [facility] Glucose 88 mg/dL 76-115 Panel BUN 22 mg/dL 5-23 Creatinine 1.1 mg/dL 0.5-1.4 Glom Filtration Rate, Estimate >60 mL/min >60 If >60 mL/min >60 41 BUN/Creat 20.0 ratio Sodium 142 mmol/L 136-145 Potassium 4.4 mmol/L 3.5-5.1 Chloride 107 mmol/L 98-107 Carbon Dioxide 24 mEq/L 18-29 Anion Gap 15 mEq/L 8-16 Calcium 9.6 mg/dL 8.5-10.1 Total Protein 7.7 g/dL 6.3-8.0 Albumin 3.6 g/dL 3.5-5.0 Globulin 4.1 g/dL 1.9-4.3 Alb/Glob 0.9 ratio Bilirubin,Total 0.3 mg/dL 0.2-1.2 Sgot/Ast 17 U/L 16-40 SGPT/Alt 21 U/L Low 30-65 Alkaline Phosphatase 95 U/L 50-136 CBC W/Automated Diff 04/25/2014 [facility] White Blood Count 8.4 K/uL 3.4- 10.5 Red Blood Count 4.43 M/uL 4.20-5.80 Hemoglobin 13.0 gm/dL 12.8-17.0 Hematocrit 39.0 % 38.0-48.0 Mean Cell Volume 88.0 fl 80.0-96.0 Mean Corpuscular HGB 29.3 pg 27.0-33.0 Mean Corpuscular HGB Conc 33.3 g/dL 31.7-36.0 Platelet Count 213 K/uL 150-400 Red Cell Distri Width SD 42.4 fl 36-51 Red Cell Distri Width %CV 13.4 % 11.6-15.8 Mean Platelet Volume 12.6 fL High 6.6-10.6 Neut% 49.3 % 33.0-73.0 Lymph % 36.3 % 17.0-56.0 [place] % 6.9 % 0.0-10.0 Eo% 6.4 % High 0.0-5.0 Bas% 1.1 % High 0.1-1.0 Neut# 4.13 K/uL 1.8-7.0 Lymph # 3.04 K/uL 1.2-4.0 [place] # 0.58 K/uL 0.0-0.6 Eos # 0.54 K/uL High 0.0-0.5 Baso # 0.09 K/uL Low 0.1-0.2 1 Chief Science Officer: [id number] 2 SEE RESULT BELOW Name: KAIA FISH : [address]: Jeremiah Mackenzie MD Acct: [id number] Unit: [id number] AGE: 78 Location: ED Re10/08/18 SEX: F Status: REG ER SPEC: [id number] TANA: 10/08/18-[address]: Terence Mackenzie MD REQ: [id number] RECD: 10/08/18 STATUS: ARVIND LARA DR: Joy Grewal MD _ SOURCE: NASAL SPDESC: ORDERED: Flu A B Request Procedure Result Reported Site Rapid Influenza A B Request Final 10/08/182010 ML Specimen received for Influenza A/B Molecular testing * ML - Main Lab . END OF REPORT DEPARTMENT OF PATHOLOGY, [address] [place] [address] Bernardo Franks M.D. Director [facility] # [id number] 3 [facility] Severe Sepsis and Septic Shock Management Bundle Measure requires all lactic acids initially measuring >2.0 mmol/L be repeated. 4 Because ethnic data is not always readily available, this report includes an eGFR for both -Americans and non- Americans. The National Kidney Disease Education Program (NKDEP) does not endorse the use of the MDRD equation for patients that are not between the ages of 18 and 70, are , have extremes of body size, muscle mass, or nutritional status, or are non- or non-. According to the National Kidney Foundation, irrespective of diagnosis, the stage of the disease is based on the level of kidney function: Stage Description GFR(mL/min/1.73 m(2)) 1 Kidney damage with normal or decreased GFR 90 2 Kidney damage with mild decrease in GFR 60-89 3 Moderate decrease in GFR 30-59 4 Severe decrease in GFR 15-29 5 Kidney failure <15 (or dialysis) 5 Specimen Hemolyzed. Result may not be valid. Unable to report test result due to hemolysis. 6 Unable to report test result due to hemolysis. 7 Troponin-I testing on Plasma Separator Tubes (PST) has a known false positive rate of 0.20-0.40%. All positive troponins reflex immediate secondary confirmatory testing. 8 SEE RESULT BELOW Name: KAIA FISH : [address]: Ranjith Adams MD Acct: [id number] Unit: [id number] AGE: 78 Location: [place] [address] Re10/08/18 SEX: F Status: ADM Lorri SPEC: [id number] TANA: 10/08/18 [facility] DR: Gabriel Anderson MD REQ: [id number] RECD: 10/08/18 STATUS: ARVIND LARA DR: Joy Grewal MD [facility] _ SOURCE: URINE SPDESC: ORDERED: Urine Culture Procedure Result Reported Site Urine Culture Final 10/09/18- 1604 ML No Growth (<1,000 CFU/mL) * ML - Main Lab . END OF REPORT DEPARTMENT OF PATHOLOGY, [address], [place], [place] [address] Bernardo Franks M.D. Director [facility] # [id number] 9 RELATIVE RISK CATEGORY AND AVERAGE hs-CRP LEVEL: LOW RISK < 1.0 MG/L AVERAGE RISK 1.0 to 3.0 MG/L HIGH RISK > 3.0 MG/L 10 A REVIEW OF THE LITERATURE SUGGESTS THE FOLLOWING RANGES FOR THE CLASSIFICATION OF 25-OH VITAMIN D STATUS: VITAMIN D STATUS 25-OH VITAMIN D DEFICIENCY <20 NG/ML INSUFFICIENCY 20-30 NG/ML SUFFICIENCY 31 - 100 NG/ML TOXICITY > 100 NG/ML A PEDIATRIC REFERENCE RANGE HAS NOT BEEN ESTABLISHED USING THIS METHOD. 11 Performed using Siemens Gilmer immunoassay. Care must be taken when interpreting HbA1c results in patients with a hemoglobin variant or decreased erythrocyte lifespan. Values 5.7 - 6.4% suggest prediabetes. Values >=6.5% are diagnostic for diabetes. REFERENCE: DIABETES CARE 2018: 41([id number]). 12 PER NCEP ATP III GUIDELINES: RESULTS LOWER THAN 40 MG/DL ARE SUGGESTIVE OF INCREASED RISK FOR CORONARY ARTERY DISEASE. RESULTS > OR=TO 60 MG/DL ARE CONSIDERED A NEGATIVE RISK FACTOR. 13 INTERPRETATION OF CHOL-HDL RATIO CHD RISK FEMALE MALE VERY HIGH >8.3 >14.3 HIGH 5.6- 8.3 6.7- 14.3 AVERAGE 3.7- 5.6 4.0- 6.7 BELOW AVERAGE 2.5- 3.7 2.7- 4.0 PROTECTED <2.5 <2.7 14 PER NCEP ATP III GUIDELINES: OPTIMAL < 100 NEAR OPTIMAL 100 - 129 BORDERLINE HIGH 130 - 159 HIGH 160 - 189 VERY HIGH > 189 15 NORMAL KIDNEY FUNCTION OR MILD DISEASE - GFR >OR=60 CHRONIC KIDNEY DISEASE - GFR 15 - 59 RENAL FAILURE - GFR <15 Est. GFR calculation based on the MDRD study equation, which assumes a steady state for creatinine. Est. GFR should not be used for medication dosing. 16 Because ethnic data is not always readily available, this report includes an eGFR for both -Americans and non- Americans. The National Kidney Disease Education Program (NKDEP) does not endorse the use of the MDRD equation for patients that are not between the ages of 18 and 70, are , have extremes of body size, muscle mass, or nutritional status, or are non- or non-. According to the National Kidney Foundation, irrespective of diagnosis, the stage of the disease is based on the level of kidney function: Stage Description GFR(mL/min/1.73 m(2)) 1 Kidney damage with normal or decreased GFR 90 2 Kidney damage with mild decrease in GFR 60-89 3 Moderate decrease in GFR 30-59 4 Severe decrease in GFR 15-29 5 Kidney failure <15 (or dialysis) 17 [id number] Desirable: <150 Borderline High: 150-199 High: 200-499 Very High: >500 19 Desirable: <200 Borderline High: 200-239 High: >239 20 Low: <40 Desirable: 40-60 High: >60 21 Desirable: <100 Near Optimal: 100-129 Borderline High: 130-159 High: 160-189 Very High: >189 22 Therapeutic target for the treatment of diabetes mellitus patients is <7% HBA1C, and in selective patients <6.0%. Please refer to [place] [employer] Association diabetic care guidelines for further information. 23 [id number] Note: Persistent reduction for 3 months or more in an eGFR <60 mL/min/1.73 m2 defines CKD. Patients with eGFR values >/=60 mL/min/1.73 m2 may also have CKD if evidence of persistent proteinuria is present. The original MDRD equation for estimated GFR is not valid for patients less than 18 years of age. Additional information may be found at www.kdoqi.org. 25 Values below the stated reference ranges of AST and ALT can be seen in normal populations. Clinical correlation is suggested. 26 Reference Guidelines*: Desirable: ........... < 200 mg/dL Borderline High: ..... 200-239 mg/dL High: ................ >=240 mg/dL * The National Cholesterol Education Program (NCEP) 27 Reference Guidelines*: Normal: ............. < 150 mg/dL Borderline High: .... 150-199 mg/dL High: ............... 200-499 mg/dL Very High: .......... > 500 mg/dL * Source: National Cholesterol Education Program (NCEP) 28 Reference Guidelines*: Low HDL: ..... < 40 mg/dL Normal: ..... 40-60 mg/dL Desirable: ... > 60 mg/dL *The National Cholesterol Education Program(NCEP) 29 Reference Guidelines*: Optimal:........... <100 mg/dL Near Optimal....... 100-129 mg/dL Borderline High.... 130-159 mg/dL High............... 160-189 mg/dL Very High.......... >=190 mg/dL * Source: National Cholesterol Education Program (NCEP) 30 Elevated levels of HbA1c suggest the need for more aggressive treatment of glycemia. The [place] [employer] recommends that a primary goal of therapy should be a HbA1c of <7% and that physicians should re-evaluate the treatment regimen in patients with HbA1c values consistently >8%. 31 Potassium reference range changed effective 08/11/14 32 Because ethnic data is not always readily available, this report includes an eGFR for both -Americans and non- Americans. The National Kidney Disease Education Program (NKDEP) does not endorse the use of the MDRD equation for patients that are not between the ages of 18 and 70, are , have extremes of body size, muscle mass, or nutritional status, or are non- or non-. According to the National Kidney Foundation, irrespective of diagnosis, the stage of the disease is based on the level of kidney function: Stage Description GFR(mL/min/1.73 m(2)) 1 Kidney damage with normal or decreased GFR 90 2 Kidney damage with mild decrease in GFR 60-89 3 Moderate decrease in GFR 30-59 4 Severe decrease in GFR 15-29 5 Kidney failure <15 (or dialysis) 33 Desirable <150 Borderline high 150-199 High 200-499 Very High >500 34 Desirable <200 Borderline high 200-239 High >239 35 Low <40 Desirable: 40-60 High: >60 36 Desirable <100 Near Optimal 100-129 Borderline high 130-159 High 160-189 Very High >189 37 Therapeutic target for the treatment of diabetes Mellitus patients is <7% HBA1C, and in selective patients <6.0%.Please refer to [place] [employer] Association Diabetic care guidelines for further information. 38 Low risk: <1.00 Average risk: 1.00-3.00 High risk: >3.00 39 Relative Risk for Future Cardiovascular Event Low <1.00 Average 1.00 - 3.00 High >3.00 40 A1c value between 5.7% and 6.4% is considered at increased risk for diabetes. A1c value greater than 6.5 % is considered essentially diagnostic for Type II diabetes. Current guidelines recommend a treatment goal of <7% for diabetic patients. This method will measure glycosylated hemoglobin variants, HbS, HbG, HbH, HbWayne, HbC, HbE, etc. Other hemoglobin- opathies may give incorrect results with this test. 41 Note: Persistent reduction for 3 months or more in an eGFR <60 mL/min/1.73 m2 defines CKD. Patients with eGFR values >/=60 mL/min/1.73 m2 may also have CKD if evidence of persistent proteinuria is present. The original MDRD equation for estimated GFR is not valid for patients less than 18 years of age. Additional information may be found at www.kdoqi.org. Procedures Date Code Description Status 04/25/2014 13305 EKG Completed 04/25/2014 38334 Diagnostic Bekesy Audiometry Completed Encounters Type Date Location Provider Dx Diagnosis Office Visit 04/24/2019 [facility] Joy Grewal, I25.10 [facility] heart 1:00p M.D. disease of [place] coronary artery w/o ang pctrs E11.65 Type 2 diabetes mellitus with hyperglycemia I44.7 Left bundle-branch block, unspecified I25.5 Ischemic cardiomyopathy I10 Essential (primary) hypertension E78.2 Mixed hyperlipidemia M15.9 Polyosteoarthritis, unspecified R60.0 Localized edema M25.569 Pain in unspecified knee R53.83 Other fatigue H52.4 Presbyopia H91.93 Unspecified hearing loss, bilateral H26.9 Unspecified cataract K21.0 Gastro-esophageal reflux disease with esophagitis R06.02 Shortness of breath E55.9 Vitamin D deficiency, unspecified N18.3 Chronic kidney disease, stage 3 (moderate) R35.1 Nocturia K59.00 Constipation, unspecified K64.9 Unspecified hemorrhoids Office Visit 10/31/2018 11:00a [place] [facility] Joy Grewal, I25.10 [facility] [place] disease of [place] coronary [facility].65 Type 2 diabetes mellitus with hyperglycemia I44.7 Left bundle-branch block, unspecified I25.5 Ischemic cardiomyopathy I10 Essential (primary) hypertension E78.2 Mixed hyperlipidemia M15.9 Polyosteoarthritis, unspecified R60.0 Localized edema M25.569 Pain in unspecified knee R53.83 Other fatigue H52.4 Presbyopia Z68.30 Body mass index (BMI) 30.0-30.9, adult H91.93 Unspecified hearing loss, bilateral H26.9 Unspecified cataract K21.0 Gastro-esophageal reflux disease with esophagitis R06.02 Shortness of breath E55.9 Vitamin D deficiency, unspecified N18.3 Chronic kidney disease, stage 3 (moderate) R35.1 Nocturia K59.00 Constipation, unspecified K64.9 Unspecified hemorrhoids Z00.01 Encounter for general adult medical exam w abnormal findings Office Visit 08/03/2018 1:00p [place] [facility] Joy Grewal, I25.10 [facility] [place] disease of [place] coronary artery w/o kitty estrada E11.65 Type 2 diabetes mellitus with hyperglycemia I44.7 Left bundle-branch block, unspecified I25.5 Ischemic cardiomyopathy I10 Essential (primary) hypertension E78.2 Mixed hyperlipidemia M15.9 Polyosteoarthritis, unspecified R60.0 Localized edema M25.569 Pain in unspecified knee R53.83 Other fatigue H52.4 Presbyopia H91.93 Unspecified hearing loss, bilateral H26.9 Unspecified cataract K21.0 Gastro-esophageal reflux disease with esophagitis R06.02 Shortness of breath E55.9 Vitamin D deficiency, unspecified N18.3 Chronic kidney disease, stage 3 (moderate) R35.1 Nocturia Office Visit 07/20/2018 1:00p [place] [facility] Joy Grewal, I25.10 [facility] MMauro disease of ne[place] perce coronary artery w/o [facility] E11.65 Type 2 diabetes mellitus with hyperglycemia I44.7 Left bundle-branch block, unspecified I25.5 Ischemic cardiomyopathy I10 Essential (primary) hypertension E78.2 Mixed hyperlipidemia M15.9 Polyosteoarthritis, unspecified R60.0 Localized edema M25.569 Pain in unspecified knee R53.83 Other fatigue H52.4 Presbyopia H91.93 Unspecified hearing loss, bilateral H26.9 Unspecified cataract K21.0 Gastro-esophageal reflux disease with esophagitis R06.02 Shortness of breath E55.9 Vitamin D deficiency, unspecified N18.3 Chronic kidney disease, stage 3 (moderate) Office Visit 06/20/2018 11:00a [place] [facility] Joy Grewal, I25.10 [facility] [place] disease of [place] perce coronary artery w/[facility] E11.65 Type 2 diabetes mellitus with hyperglycemia I44.7 Left bundle-branch block, unspecified I25.5 Ischemic cardiomyopathy I10 Essential (primary) hypertension E78.2 Mixed hyperlipidemia M15.9 Polyosteoarthritis, unspecified R60.0 Localized edema M25.569 Pain in unspecified knee R53.83 Other fatigue H52.4 Presbyopia H91.93 Unspecified hearing loss, bilateral H26.9 Unspecified cataract K21.0 Gastro-esophageal reflux disease with esophagitis R06.02 Shortness of breath E55.9 Vitamin D deficiency, unspecified N18.3 Chronic kidney disease, stage 3 (moderate) Office Visit 12/20/2017 1:00p [place] [facility] Joy Grewal I10 Essential ( primary) Lu[place] Cardoso hypertension M25.569 Pain in unspecified knee E78.2 Mixed hyperlipidemia R60.0 Localized edema M15.9 Polyosteoarthritis, unspecified R53.83 Other fatigue H52.4 Presbyopia H91.93 Unspecified hearing loss, bilateral H26.9 Unspecified cataract I25.10 Athscl heart disease of [place] coronary artery w/o ang pctrs K21.0 Gastro-esophageal reflux disease with esophagitis E11.65 Type 2 diabetes mellitus with hyperglycemia I44.7 Left bundle-branch block, unspecified I25.5 Ischemic cardiomyopathy R06.02 Shortness of breath E55.9 Vitamin D deficiency, unspecified Office Visit 12/13/2017 1:00p [place] [facility] Uri, Ahmad I10 Essential ( primary) [place]cia Cardoso hypertension M25.569 Pain in unspecified knee E78.2 Mixed hyperlipidemia R60.0 Localized edema M15.9 Polyosteoarthritis, unspecified R53.83 Other fatigue H52.4 Presbyopia H91.93 Unspecified hearing loss, bilateral H26.9 Unspecified cataract I25.10 Athscl heart disease of [place] coronary artery w/o ang pctrs K21.0 Gastro-esophageal reflux disease with esophagitis E11.65 Type 2 diabetes mellitus with hyperglycemia I44.7 Left bundle-branch block, unspecified I25.5 Ischemic cardiomyopathy R06.02 Shortness of breath E55.9 Vitamin D deficiency, unspecified Office Visit 11/18/2017 11:30a [place] [facility] Uri Ahmad I10 Essential ( primary) Lu[place] Cardoso hypertension M25.569 Pain in unspecified knee E78.2 Mixed hyperlipidemia R60.0 Localized edema M15.9 Polyosteoarthritis, unspecified R53.83 Other fatigue H52.4 Presbyopia H91.93 Unspecified hearing loss, bilateral H26.9 Unspecified cataract I25.10 Athscl heart disease of [place] coronary artery w/o ang pctrs K21.0 Gastro-esophageal reflux disease with esophagitis E11.65 Type 2 diabetes mellitus with hyperglycemia I44.7 Left bundle-branch block, unspecified I25.5 Ischemic cardiomyopathy R06.02 Shortness of breath Office Visit 09/16/2015 11:30a [place] [facility] Uri, Ahmad I10 Essential ( primary) Lu[place]cia Cardoso hypertension M25.569 Pain in unspecified knee R60.0 Localized edema E78.2 Mixed hyperlipidemia M15.9 Polyosteoarthritis, unspecified R53.83 Other fatigue H52.4 Presbyopia H91.93 Unspecified hearing loss, bilateral H26.9 Unspecified cataract I25.10 Athscl heart disease of [place] coronary artery w/o ang pctrs K21.0 Gastro-esophageal reflux disease with esophagitis E11.65 Type 2 diabetes mellitus with hyperglycemia I44.7 Left bundle-branch block, unspecified I25.5 Ischemic cardiomyopathy R06.02 Shortness of breath Office Visit 09/02/2015 9:30a [place] [facility] Joy Grewal R06.02 Shortness of M., M.D. breath I10 Essential (primary) hypertension M25.569 Pain in unspecified knee R60.0 Localized edema E78.2 Mixed hyperlipidemia M15.9 Polyosteoarthritis, unspecified R53.83 Other fatigue H52.4 Presbyopia H91.93 Unspecified hearing loss, bilateral H26.9 Unspecified cataract I25.10 Athscl heart disease of [place] coronary artery w/o ang pctrs K21.0 Gastro-esophageal reflux disease with esophagitis E11.65 Type 2 diabetes mellitus with hyperglycemia I44.7 Left bundle-branch block, unspecified I25.5 Ischemic cardiomyopathy Office Visit 09/03/2014 11:30a [place] [facility] Joy Grewal 425.9 Cardiomyopathy MKasi, MKasiD. Secondary Unspecified 426.50 [place] Block Unspecified 427.89 Cardiac Dysrhythmia Other 786.05 Shortness Of Breath 786.59 Pain Chest Other 401.1 Hypertension Benign 719.46 Pain Joint Lower Leg 782.3 Edema 272.2 Hyperlipidemia Mixed 715.90 Osteoarthrosis Unspec Genlzd Or Localized Site Unspec 780.79 Malaise And Fatigue Other 367.4 Presbyopia 389.9 Hearing Loss Unspec 366.9 Cataract Unspec 414.00 Coronary Atherosclerosis Unspec Type Vessel [place]/Graft 530.11 Esophagitis Reflux 250.02 Diabetes Mellitus W/O Compl Type II Or Unspec Type Uncontrol Office Visit 07/17/2014 2:15p [place] [facility] Joy Grewal 425.9 Cardiomyopathy M., M.D. Secondary Unspecified 426.50 [place] Block Unspecified 427.89 Cardiac Dysrhythmia Other 786.05 Shortness Of Breath 786.59 Pain Chest Other 401.1 Hypertension Benign 719.46 Pain Joint Lower Leg 782.3 Edema 272.2 Hyperlipidemia Mixed 715.90 Osteoarthrosis Unspec Genlzd Or Localized Site Unspec 780.79 Malaise And Fatigue Other 367.4 Presbyopia 389.9 Hearing Loss Unspec 366.9 Cataract Unspec 414.00 Coronary Atherosclerosis Unspec Type Vessel [place]/Graft Office Visit 06/04/2014 4:15p [place] [facility] Joy Grewal 425.9 Cardiomyopathy Lucrecia Cardoso Secondary Unspecified 426.50 [place] Block Unspecified 427.89 Cardiac Dysrhythmia Other 786.05 Shortness Of Breath 786.59 Pain Chest Other 401.1 Hypertension Benign 719.46 Pain Joint Lower Leg 782.3 Edema 272.2 Hyperlipidemia Mixed 715.90 Osteoarthrosis Unspec Genlzd Or Localized Site Unspec 780.79 Malaise And Fatigue Other 367.4 Presbyopia 389.9 Hearing Loss Unspec 366.9 Cataract Unspec 414.00 Coronary Atherosclerosis Unspec Type Vessel [place]/Graft Office Visit 04/25/2014 2:30p [place] [facility] Joy Grewal 426.50 Brianne Cardoso M.D. Unspecified 427.89 Cardiac Dysrhythmia Other 786.05 Shortness Of Breath 786.59 Pain Chest Other 401.1 Hypertension Benign 719.46 Pain Joint Lower Leg 782.3 Edema 272.2 Hyperlipidemia Mixed 715.90 Osteoarthrosis Unspec Genlzd Or Localized Site Unspec 780.79 Malaise And Fatigue Other 367.4 Presbyopia V70.0 Examination General Medical Routine AT [facility] 389.9 Hearing Loss Unspec 366.9 Cataract Unspec Plan of Treatment 04/24/2019 - Joy Grewal M.D.I25.10 Atherosclerotic heart disease of [place] coronary artery withNew Medication:Vytorin 10-40 mg - 1 tab by mouth at bedtimeAdvair Diskus 250-50 mcg/Dose - inhale one puff by mouth twice a dayComments:F/U WITH CARDIOLOGY CONTINUE WITH RX AND F/U LAB PENDING STRESS RESULTSFollow up:2 weeks.E11.65 Type 2 diabetes mellitus with hyperglycemiaComments:DIET REVIEWED CONTINUE DIETWT LOSSF/U LAB FS qAC AND HS PRN F/U FBWI44.7 Left bundle-branch block, unspecifiedComments:STABLE/ AISTYMQM94.5 Ischemic cardiomyopathyNew Medication:Vytorin 10-40 mg - 1 tab by mouth at bedtimeAdvair Diskus 250-50 mcg/Dose - inhale one puff by mouth twice a dayComments:STABLE AND ASYMPTOMATIC F/U WITH CARDIOLOGY DIET REVIEWED WT LOSSF/U LABI10 Essential (primary) hypertensionComments:CHECK BP TIW ( PRN)F/U LABDIET AND FLUID COUNSELING LOW SODIUM DIETWT LOSSF/U LABE78.2 Mixed hyperlipidemiaComments:DIET REVIEWED CONTINUE DIETWT LOSSF/U LAB FBWM15.9 Polyosteoarthritis, unspecifiedComments:EXERCISE/HEAT/MESSAGETYLENOL OR MOTRIN PRNAVOID HEAVY LIFTINGWT LOSSR60.0 Localized edemaComments:ELEVATE LE PRNELASTIC STOCKING / PUSHPA WRAP PRNF/U LABM25.569 Pain in unspecified kneeComments:EXERCISE/HEAT /MESSAGEAVOID HEAVY LIFTING WT LOSSTYLENOL OR MOTRIN PRNR53.83 Other fatigueComments:INCRFEASE PO FLUIDCOUNCELLING AND REASSURANCE RESTH52.4 PresbyopiaComments:USE GLASSES/CONTACTSF/U WITH IXBGRWOKCGMYVI88.93 Unspecified hearing loss, bilateralComments:ADRTLMIF59.9 Unspecified cataractComments:F/U WITH EWNTJGEVCVBDJF15.0 Gastro-esophageal reflux disease with esophagitisComments:AVOID CAFFEINE, ETOH AND SPICY FOODSTUMS OR MYLANTA PRN CALL WITH PROBLEMS OR HWDWGVYFN52.02 Shortness of breathComments:INCREASE PO OMWHYHZXNT61.9 Vitamin D deficiency, unspecifiedComments:INCREASE EXPOSURE TO SUNREVIEW OF DIETN18.3 Chronic kidney disease, stage 3 (moderate)Comments:F/ U LAB F/U WITH NEPHROLOGY PRNR35.1 NocturiaComments:OBSERVE DECLINE RX OR FURTHER SRUDOKJL44.00 Constipation, unspecifiedComments:MOM OR MIRALAX PRNHIGH FIBER DIETINCREASE PO UCVAKK18.9 Unspecified hemorrhoidsComments:AVOID CONSTIPATOIN INCREASE FIBER IN DIETLAXATIVE PRNLUBRICATE ANAL AREA WITH LOTION PRN FOR COMFORT
[2019-05-03] MEDS ORDERED: Iodixanol* (CONTRAST) 320 MG/ML 100 ML SDV IV ONE (11:21)
[2019-05-03] MEDS ORDERED: Albuterol HFA INHALER* 8 gm MDI INH PRN (12:28)
[2019-05-03] MEDS ORDERED: Acetaminophen TAB* 325 MG PO PRN (12:30)
[2019-05-03] MEDS: Heparin VIAL(*) 5000 UNITS/ML VIAL (FIVE THOUSAND) SUBCUT SCH ×2 (14:54→21:39)
[2019-05-03 16:13] LABS: Troponin I 0.13 ng/mL (<0.04)
[2019-05-03] MEDS ORDERED: Furosemide IV* 10 MG/ML 2 ML VIAL (20 MG) IV SLOW PU ONE (16:25)
--- NOTE | 2019-05-03 18:53 | HP ---
CC: Dr. Grewal HISTORY AND PHYSICAL: DATE OF ADMISSION: 05/03/19 TIME OF EVALUATION: 12:20 p.m. PRIMARY CARE PROVIDER: Dr. Grewal. CHIEF COMPLAINT: "She is short of breath" as per son. HISTORY OF PRESENT ILLNESS: Ms. Boone is from [place] and speaks only Yoruba. She was offered an in dependent snout puller and the use of the iPad, but she declines it and prefers to have her son (Addison Harris) translating for her. Ms. Boone is an 79-year-old female with a past medical history of hypertension, coronary artery dis ease, COPD, hyperlipidemia, systolic congestive heart failure, who presents to the emergency room wit h complaints of progressive shortness of breath over the past 2 weeks, but worse since last night. T he patient spends 3 to 4 months in [place] and then goes back to [place] and spends 2 to 3 months there and then comes back to [place] again. She has arrived about 2 weeks ago and since arrival she has bee n complaining of some progressive exertional dyspnea and the son also noted that she had some bilater al lower extremity edema, but he attributed that to her 15-hour flight from [place] to [place]. In furt her questioning, she admitted that she has been skipping doses of her torsemide because it makes her go to the bathroom "too much." She had an appointment last week with Dr. Grewal and was encouraged to keep taking the medication, but the son states that she continues to skip doses and at this point he r last dose was at least 2 days ago. He states that she has been complaining of more shortness of breath and last night she woke up around 3 a.m. gasping for air and had severe shortness of breath and he contacted her PCP's office and was advised to bring her to the emergency room. At the time of my interview, the patient is sitting at the commode and the son tells me that she rossy ot get up because she is urinating a lot. Of note, her breathing is much improved since she received furosemide and at this point she is on room air. She denies chest pain, palpitations, nausea, vomiting, diarrhea, or urinary complaints other than the excessive diuresis with her diuretic. PAST MEDICAL HISTORY: 1. Coronary artery disease. 2. Hypertension. 3. COPD. 4. Hyperlipidemia. 5. Systolic congestive heart failure with reported ejection fraction of 30%, but no actual records i n our system. PAST SURGICAL HISTORY: Status post cholecystectomy, status post corneal transplant. MEDICATION LIST: 1. Acetaminophen 500 to 100 mg p.o. q.8 hours p.r.n. pain. 2. Albuterol sulfate 1 puff inhaled b.i.d. as needed for shortness of breath. 3. Amlodipine 5 mg p.o. daily. 4. Clopidogrel 75 mg p.o. daily. 5. Ezetimibe/simvastatin 10/40 mg 1 tablet p.o. daily. 6. Breo Ellipta 200/25 one puff inhaled daily. 7. Torsemide 10 mg p.o. daily. ALLERGIES: To IODINE. FAMILY HISTORY: Father and mother had heart disease. SOCIAL HISTORY: No history of tobacco, alcohol, or drug use. Surrogate decision maker is her son, Hipolito Harris, phone number is [phone]. REVIEW OF SYSTEMS: A 14-point review of systems was performed with the son's assistance and all the pertinent negative and positive findings are in the HPI. PHYSICAL EXAMINATION GENERAL: The patient is a pleasant elderly lady, sitting up on the commode, in no acute distress. VITAL SIGNS: Temperature 97.8, heart rate is 94, respiratory rate is 27, oxygen saturation 97% on ro om air, blood pressure is 138/76. HEENT: Pupils are equal. Moist mucous membranes. CHEST: Breath sounds present bilaterally with bibasilar crackles. CVS: Normal S1, S2. Regular rate and rhythm. ABDOMEN: Soft. Bowel sounds are present. EXTREMITIES: There is 1+ pitting edema, especially around her ankles. NEURO: She is alert and oriented x3. Able to move all 4 extremities. DIAGNOSTIC STUDIES/LAB DATA: The patient had a CBC that showed a WBC of 10.3, hemoglobin of 11.5, h ematocrit of 36, platelets of 286 with 65% neutrophils. INR was 0.85 and her D-dimer was 439. Chemi stry showed a sodium of 139, potassium of 4.4, chloride of 104, bicarb of 26, BUN of 25, creatinine o f 1.3, glucose of 133, calcium of 9.7. LFTs are normal except for alk phos that is slightly elevated at 109. First troponin is 0.14. Chest x-ray was read as diffuse interstitial infiltrates with trace right pleural effusion suggestive of congestive heart failure. I looked at the film and I agreed with the reading. EKG done 05/03/19 at 10 a.m. shows sinus rhythm at 95 beats per minute with a left bundle branch bloc k. This is unchanged from her prior EKG from September 2018. ASSESSMENT AND PLAN: Ms. Boone is an 79-year-old female with a past medical history of coronary ar rukhsana disease, hypertension, systolic congestive heart failure with reported ejection fraction of 30%, chronic obstructive pulmonary disease, hyperlipidemia, who presents to the emergency room with compl aints of progressive shortness of breath, now with orthopnea and paroxysmal nocturnal dyspnea, second alfreda to acute systolic congestive heart failure exacerbation. 1. Acute systolic congestive heart failure exacerbation. I believe the etiology of this episode is noncompliance with her torsemide. As per son, she has skipped multiple doses as she does not like e fact that she has to urinate so much and sometimes she becomes incontinent. As far as he knows, tiara reynolds has skipped the medication multiple times since arriving from [place] 2 weeks ago and her last dose w as at least 2 days ago. He denies any change in medications and he believes she is compliant with a low-salt diet. She has no complaints of chest pain, but her troponin is elevated, but I believe this is secondary to her congestive heart failure exacerbation. I am going to check serial troponins unt il peak. She is going to have an echocardiogram to assess her LV function and wall motion abnormalit ies. I am going to obtain records from her last visit to Dr. Grewal's office. There is also concern for possible pulmonary embolism considering her recent trip from [place]. Unfortunately, the patient i s allergic to IODINE, so the CTA of the chest ordered by the ED physician had to be canceled and now she is going to have a V/Q scan performed. She seems to be responding well to diuresis with furosemi de. She received 80 mg in the emergency room and we are going to continue that. 2. Hypertension is controlled. We are going to continue amlodipine. 3. Coronary artery disease. We will continue Plavix. 4. DVT prophylaxis: The patient has a score of 4 on the DVT Prophylaxis Risk Assessment Guide and s he will be started on subcutaneous heparin. 5. Code status was discussed with the patient and her son and she wishes to be a full code. TIME SPENT: Approximately 60 minutes was spent with the patient and son's interview, medical records review, physical examination to complete this admission, more than half of this time was spent face- to-face with the patient and coordination of care. [id number]/[facility] #: [id number]
[2019-05-03 19:25] LABS: Troponin I 0.14 ng/mL (<0.04)
--- NOTE | 2019-05-03 22:45 | ECHO ---
*[facility]* [place] [address] Fax #: [phone] Transthoracic Echocardiogram Patient: Krystyna Boone : 1940 Study Date: 05/03/2019 Age: 79 Gender: F HR: 88 bpm Height: 64 in /162.6 cm BSA: 1.78 m^2 Weight: 159.7 lb /72.6 kg BMI: 27.5 kg/m^2 *Branding Machine Operator: * Lani Green RD *Referring Physician: * Rose GoodwinReading Physician: * Hugh Geronimo MD Indications: Congestive Heart Failure. History: Coronary artery disease. Congestive heart failure. PMH: Myocardial infarction. Functional status: Renal failure. Risk factors: Hypertension. Diabetes mellitus. Obese. Dyslipidemia. Conclusions Summary: - Left ventricle: The cavity size is normal. Wall thickness is moderately increased. Systolic function is severely reduced. The estimated ejection fraction is 20-25%. - Right ventricle: The cavity size is mildly to moderately dilated. - Left atrium: The atrium is severely dilated. - Mitral valve: There is mild regurgitation. - Aortic valve: The findings are consistent with moderate stenosis. Study data: Transthoracic echocardiogram. Procedure: Transthoracic echocardiography was performed. Image quality was fair. The study was technically limited due to poor Parasternal acoustic window availability. Complete 2D, spectral Doppler, and color flow Doppler. Location: Bedside. Patient status: Inpatient. Patient room number: 444-2. No prior study is available for comparison. Rhythm: Normal sinus rhythm. LBBB. Findings Left ventricle: The cavity size is normal. Wall thickness is moderately increased. Systolic function is severely reduced. The estimated ejection fraction is 20-25%. Severe diffuse hypokinesis. Regional wall motion abnormalities: Hypokinesis. Hypokinesis of the anteroseptal, inferior, and inferoseptal myocardium. Left ventricular diastolic function parameters are indeterminate. Right ventricle: The cavity size is mildly to moderately dilated. Systolic function is normal. Left atrium: The atrium is severely dilated. Right atrium: The atrium is mildly dilated. Mitral valve: The leaflets are mildly thickened. There is no evidence of stenosis. There is mild regurgitation. Aortic valve: Poorly visualized. The valve is trileaflet. The leaflets are mildly thickened. Thickening, consistent with sclerosis. The findings are consistent with moderate stenosis. There is trace regurgitation. Tricuspid valve: The leaflets are normal thickness. There is no evidence of stenosis. There is trace regurgitation. Pulmonic valve: Poorly visualized. The leaflets are normal thickness. There is no evidence of stenosis. There is trace to mild regurgitation. Aorta: Ascending aorta: The ascending aorta is mildly dilated. The aortic root appears normal. The aortic arch appears normal. Pericardium: A prominent pericardial fat pad is present. There is no significant pericardial effusion. Pulmonary arteries: The main pulmonary artery is normal-sized. Systolic pressure can not be accurately estimated. Systemic veins: Inferior vena cava: The vessel is dilated. There is (>= 50%) respiratory change in the IVC dimension. Measurements Left ventricle Value Ref Right atrium continued Value Ref MARLIN, LAX 4.6 cm 3.8 - 5.2 SI dim, ES, A4C 5.0 cm 3.4 - 5.3 ESD, LAX (H) 4.0 cm 2.2 - 3.5 Estimated RAP 8 mm Hg --------- FS, LAX (L) 15 % 27 - 45 PW, ED, LAX (H) 1.4 cm 0.6 - 0.9 Aortic valve Value Ref FS (L) 14 % 27 - 45 Awa diam, ED 2.1 cm --------- PW, ED (H) 1.4 cm 0.6 - 0.9 Peak v, S 1.49 m/sec --------- E', lat awa, TDI (L) 8.1 cm/sec >=10.0 VTI, S 33.6 cm -- ------- E/e', lat awa, 14 Mean grad, S 4.0 mm Hg ----- ---- TDI Peak grad, S 9.0 mm Hg --------- E', med awa, TDI (L) 6.6 cm/sec >=7.0 LVOT/AV, VTI ratio 0.39 -- ------- E/e', med awa, 17 SAULO, VTI 1.21 cm^2 ----- ---- TDI SAULO, Vmax 1.61 cm^2 --------- E', avg, TDI 7.4 cm/sec E/e', avg, TDI (H) 15 <=14 Mitral valve Value Re f Peak E 1.13 m/sec --------- LVOT Value Ref Peak A 0.01 m/sec --------- Diam, S 2.00 cm Decel time 122 ms --------- Area 3.1 cm^2 Peak grad, D 5.1 mm Hg --------- Peak isaiah, S 0.76 m/sec Peak E/A ratio 188.3 --------- VTI, S 13.0 cm Mean grad, S 1 mm Hg Pulmonic valve Value Ref SV 40 ml Peak v, S 0.79 m/sec --------- SV/bsa 22 ml/m^2 Peak grad, S 2.0 mm Hg --------- Ventricular septum Value Ref Aortic root Value Ref IVS, ED (H) 1.4 cm 0.6 - 0.9 Root diam 3.4 cm <4.0 Right ventricle Value Ref Ascending aorta Value Ref MARLIN, LAX 2.6 cm AAo AP diam, S 4.0 cm --------- MARLIN minor ax, (H) 5.2 cm 1.9 - 3.5 A4C mid Aortic arch Value Ref Arch diam 2.3 cm --------- Left atrium Value Ref AP dim, ES 3.50 cm 2.70 - Decending aorta Value Ref 3.80 Homa peak isaiah 0.6 m/sec --------- ML dim, A4C 5.3 cm SI dim, A4C 5.5 cm Inferior vena cava Value Ref Vol/bsa, ES, 1-p (H) 41 ml/m^2 11 - 40 Diam 2.2 cm --------- A4C Vol/bsa, ES, A/L (H) 55 ml/m^2 16 - 34 Right atrium Value Ref SI dim, ES 5.0 cm 3.4 - 5.3 ML dim, ES, A4C (H) 5.4 cm 2.6 - 4.4 Legend: (L) and (H) bryan values outside specified reference range. Prepared and electronically signed by Hugh Geronimo MD 05/03/2019 22:45
[2019-05-04] MEDS ORDERED: Morphine INJ* 2 MG/ML 1 ML SYRINGE (TWO MG - NEW SYRINGE VERSION) IV ONE (03:44)
[2019-05-04 03:59] VITALS: BP 126/69
[2019-05-04] MEDS: Heparin VIAL(*) 5000 UNITS/ML VIAL (FIVE THOUSAND) SUBCUT SCH (05:53)
[2019-05-04 07:07] LABS: BUN/Creatinine Ratio 19.1 (8-20); Calcium 9.3 mg/dL (8.6-10.3); EGFR African American 34.2 (>60); EGFR Non-African American 28.3 (>60); Potassium 4.2 mmol/L (3.5-5.0)
[2019-05-04 07:10] LABS: Troponin I 0.11 ng/mL (<0.04)
[2019-05-04] MEDS ORDERED: SIMVASTATIN PO SCH (09:00)
[2019-05-04] MEDS ORDERED: Clopidogrel TAB* 75 MG PO SCH (09:00)
[2019-05-04] MEDS ORDERED: Fluticasone/Vilanterol MDI(NF) 200/25 MDI INH SCH (09:00)
[2019-05-04] MEDS ORDERED: Atorvastatin* 20 MG TAB PO SCH (09:00)
[2019-05-04] MEDS ORDERED: amLODIPine TAB* 5 MG PO SCH (09:00)
[2019-05-04] MEDS ORDERED: Ezetimibe TAB* 10 MG PO SCH (09:00)
[2019-05-04] MEDS ORDERED: Furosemide IV* 10 MG/ML VIAL (40 MG) IV SCH (09:00)
[2019-05-04] MEDS ORDERED: Torsemide TAB 10 MG PO SCH (09:00)
[2019-05-04] MEDS ORDERED: EZETIMIBE PO SCH (09:00)
--- NOTE | 2019-05-04 10:22 | DS ---
DISCHARGE SUMMARY: DATE OF ADMISSION: 05/03/19 DATE OF DISCHARGE: 05/04/19 HISTORY OF PRESENT ILLNESS: This 79-year-old woman was admitted with a CHF exacerbation. This appears to have been precipitated by her skipping several doses of her diuretic, which is torsemide 10 mg daily. I verified this on our [facility]. Sometimes, she would instead of skipping a dose, take a half of the tablet. She did this because she would urinate frequently and at times is even incontinent. She recently flew here from [place]. She does this every year, spends several months in [place] and several months in [place]. She lives with her son, who was at her bedside and translated throughout my entire visit. She had seen Dr. Grewal who of course encouraged her to take her diuretic every day, but even then I do not think she did take it every day. She received intravenous furosemide in the emergency room. The next morning, her edema was virtually gone, she felt much better. Her creatinine did rise from 1.3 to 1.7. On the day of discharge, she will receive torsemide 10 mg p.o. and will take that every day. She will have a basic metabolic profile on 05/07/19 with a copy to Dr. Grewal. I note she had a V/Q lung scan, which has low probability of pulmonary embolus. A bladder scan showed no residual urine. DISCHARGE DIAGNOSES: 1. Coronary artery disease. 2. Systolic congestive heart failure, acute on chronic. 3. Hypertension. 4. Chronic obstructive pulmonary disease. 5. Hyperlipidemia. DISCHARGE MEDICATIONS: 1. Torsemide 10 mg daily. 2. Amlodipine 5 mg daily. 3. Breo-Ellipta 1 puff daily. 4. Clopidogrel 75 mg daily. 5. Albuterol 1 puff b.i.d. p.r.n. 6. Ezetimibe/simvastatin 10/40 one daily. 7. Acetaminophen as needed. The patient will have a basic metabolic profile on 05/07/[address] Grewal. She is instructed to weigh herself every day and to take an extra torsemide if her weight went up by 3 pounds or more and an indication to call back to Dr. Grewal if her weight changed in either direction by 3 pounds from the initial weight. She was advised to reduce the amount of salt in her diet. I note she does all her cooking of her own food. Bladder scan will be done before discharge. CONDITION ON DISCHARGE: Improved. DISPOSITION ON DISCHARGE: Discharged to home. [id number]/[facility] #: [id number] JAYESH
== END 2019-05-04 10:15 | disposition home or self-care (01) ==
LOC: ED 09:53 → MEDTELE 12:24
PROVIDERS: ADMIT Internal Medicine; ATTEND Internal Medicine
DX: I25.10 Atherosclerotic heart disease of native coronary artery without angina pectoris (principal); I11.0 Hypertensive heart disease with heart failure; I50.23 Acute on chronic systolic (congestive) heart failure; J44.9 Chronic obstructive pulmonary disease, unspecified; E78.5 Hyperlipidemia, unspecified; Z79.899 Other long term (current) drug therapy; E11.9 Type 2 diabetes mellitus without complications; E78.00 Pure hypercholesterolemia, unspecified; Z87.442 Personal history of urinary calculi; Z87.448 Personal history of other diseases of urinary system; R60.0 Localized edema; R94.31 Abnormal electrocardiogram [ECG] [EKG]; I44.7 Left bundle-branch block, unspecified
CPT/HCPCS: 36415; 71045; 78582; 80048; 80053; 83880; 84484; 85025; 85379; 85610; 93005; 93306; 96372; 96374; 96376; 99284; A9270-GY; A9540; A9558; G0378; J1644; J1940